=== PATIENT | male | born 1985 | race African-American/Black ===

== ENCOUNTER 2016-06-04 08:16 | Emergency (ER) | payer SELFPAY ==
[~2016-06-04] VITALS: Ht 188 cm; Wt 80.0 kg
[~2016-06-04 08:16] MED LIST: ABIL5TAB6 PO
[2016-06-04 08:18] VITALS: BP 135/86; PULSE 88; RESP 15; TEMP 97.9; O2SAT 98
--- NOTE | 2016-06-04 08:36 | PD ---
HPI Chief Complaint: Injury Time Seen by Provider: 08:36 Travel History International Travel<30 days: No Contact w/Intl Traveler<30days: No Traveled to known affect area: No History of Present Illness HPI 31-year-old male presents to the emergency department for evaluation of right hand injury that occurred 1 week ago. He states that he fell down 3 steps one week ago and then again yesterday. He states he has a right hand pain because he caught his fall with his hand. He denies any head injury or LOC. No neck pain or back pain. No chest pain or abdominal pain. No nausea or vomiting. He also states he has mild right shoulder pain. Patient has been ambulatory since the fall. He denies any chronic medical problems or taking any medications. [facility] Past Medical History Diminished Hearing: No Psychiatric: Yes (HAS BEEN TREATED FOR MOOD AND PSYCHOSIS) Immunizations Current: Yes Past Surgical History Oral Surgery: Yes Social History Alcohol Use: Yes (SOCIALLY) Tobacco Use: Yes (a few cigs per day. ) Substance Use: Yes Allergies-Medications (Allergen,Severity, Reaction): Coded Allergies: No Known Allergies (Verified , 06/04/16) Reported Meds & Prescriptions Reported Meds & Active Scripts Active No Active Prescriptions or Reported Medications Review of Systems Except as stated in HPI: all other systems reviewed are Neg Physical Exam Narrative GENERAL: Well-developed well-nourished male patient, ambulatory with a steady gait. Afebrile. SKIN: Warm and dry. HEAD: Normocephalic. Atraumatic. EYES: No scleral icterus. No injection or drainage. NECK: Supple, trachea midline. No JVD or lymphadenopathy. CARDIOVASCULAR: Regular rate and rhythm without murmurs, gallops, or rubs. Right radial pulses 2+. RESPIRATORY: Breath sounds equal bilaterally. No accessory muscle use. Lungs sounds are clear to auscultation. GASTROINTESTINAL: Abdomen soft, non-tender, nondistended. MUSCULOSKELETAL: No cyanosis, or edema. Patient has tenderness over right posterior shoulder and right volar hand just proximal to the second third and fourth digits. Capillary refill less than 2 seconds to the digits of the right hand. No snuffbox tenderness. He has a normal grasp strength in the right hand. BACK: Nontender without obvious deformity. No CVA tenderness. No midline spinal tenderness. He has full range of motion of the cervical spine without pain or stiffness. Data Data Last Documented VS Vital Signs Date Time Temp Pulse Resp B/P Pulse Ox O2 Delivery O2 Flow Rate FiO2 06/04/16 08:18 97.9 88 15 135/86 98 Orders Shoulder, Complete (>2vws) (06/04/16 ) Hand, Complete ([id number]) (06/04/16 ) Splint Or Brace Apply/Monitor (06/04/16 09:39) Ibuprofen (Motrin) (06/04/16 10:00) MDM Medical Decision Making Medical Screen Exam Complete: Yes Emergency Medical Condition: Yes Medical Record Reviewed: Yes Differential Diagnosis Sprain versus contusion versus fracture Narrative Course 31-year-old male presents to the emergency department for evaluation of right hand and right shoulder injury after he fell one week ago and again yesterday. He denies any other injury. X-ray of the right hand and right shoulder are ordered and pending. X-ray of the right hand shows a nondisplaced fracture of the carpal navicular. X-ray of the right shoulder is negative for fracture or dislocation. Patient will be placed in a thumb spica splint. He is instructed to follow-up with a hand surgeon. He states he has insurance to do so. Patient is return for any acute worsening of symptoms. He verbalizes agreement and understanding. Diagnosis Primary Impression: Fracture of navicular bone of right wrist Qualified Code: S62.001A - Closed nondisplaced fracture of scaphoid of right wrist, unspecified portion of scaphoid, initial encounter Referrals: Hand Surgeon call for appointment Patient Instructions: General Instructions, Wrist Fracture in Adults (ED) Additional Instructions: Wrist splint. Elevate. Take ibuprofen as instructed as needed with food for pain. Follow-up with hand surgeon or orthopedist. Return to the emergency department for any acute worsening of symptoms. Med/Other Pt SpecificInfo: Prescription(s) given Scripts Ibuprofen 800 Mg Wen409 Mg PO TID PRN (PAIN SCALE 1 TO 10) #21 TAB Ref 0 Prov:Anna Durbin 06/04/16 Disposition: 01 DISCHARGE HOME Condition: Stable Anna Durbin Jun 04, 2016 08:36
--- NOTE | 2016-06-04 09:32 | RADRPT ---
EXAM DATE/TIME: 06/04/2016 09:05 [facility] COMPARISON: No previous studies available for comparison. INDICATIONS : Right hand pain after falling last week and again yesterday. MEDICAL HISTORY : Smoker. SURGICAL HISTORY : None. ENCOUNTER: Initial ACUITY: 1 week PAIN SCORE: 10/10 LOCATION: Right entire hand. FINDINGS: Nondisplaced fracture of the carpal navicular. No other fractures are appreciated. CONCLUSION: Nondisplaced fracture carpal navicular. Herber Greene MD FACR on June 04, 2016 at 9:26 Board Certified Radiologist. This report was verified electronically.
--- NOTE | 2016-06-04 09:36 | RADRPT ---
EXAM DATE/TIME: 06/04/2016 09:10 [facility] COMPARISON: No previous studies available for comparison. INDICATIONS : Right shoulder pain after falling last week and again yesterday. MEDICAL HISTORY : Smoker. SURGICAL HISTORY : None. ENCOUNTER: Initial ACUITY: 1 week PAIN SCORE: 10/10 LOCATION: Right shoulder. FINDINGS: Multiple view examination of the right shoulder demonstrates no evidence of fracture or dislocation. The glenohumeral and acromioclavicular joints are maintained. There is normal range of motion betwe en internal and external rotation. Bony mineralization is normal. CONCLUSION: Negative for fracture or dislocation. Followup in 7-10 days is suggested if symptoms persist.. Herber Greene MD FACR on June 04, 2016 at 9:31 Board Certified Radiologist. This report was verified electronically.
[2016-06-04] MEDS ORDERED: IBUP800T23 PO (09:49)
[2016-06-04] MEDS ORDERED: IBUPROFEN 800 MG TAB PO ONE (10:00)
== END 2016-06-04 10:06 | disposition home or self-care (01) ==
LOC: NEPB 08:16
DX: S62.001A Unspecified fracture of navicular [scaphoid] bone of right wrist, initial encounter for closed fracture (principal); M25.511 Pain in right shoulder; F17.210 Nicotine dependence, cigarettes, uncomplicated; W10.9XXA Fall (on) (from) unspecified stairs and steps, initial encounter; Y99.8 Other external cause status
CPT/HCPCS: 73030; 73130; 99283; L3808

== ENCOUNTER 2016-06-09 20:42 | Emergency (ER) | payer SELFPAY ==
[~2016-06-09] VITALS: Ht 188 cm; Wt 82.0 kg
[~2016-06-09 20:42] MED LIST changes: -ABIL5TAB6 PO; +IBUP800T23 PO
[2016-06-09 20:46] VITALS: BP 136/70; PULSE 93; RESP 14; TEMP 98.3; O2SAT 97
--- NOTE | 2016-06-09 21:52 | PD ---
HPI Chief Complaint: Complaint Time Seen by Provider: 21:40 Travel History International Travel<30 days: No Contact w/Intl Traveler<30days: No Traveled to known affect area: No History of Present Illness HPI 31-year-old male presents for evaluation of a pruritic rash. Symptoms started 1 week ago. The rash is inferior to the scrotum. It itches. It is worse when he is sweating. He has tried washing the area but the rash has persisted which prompted evaluation. Denies any testicular or scrotal pain, urethral discharge. Incidentally per chart review the patient was diagnosed with a right navicular fracture on June 04. He was placed in a thumb spica splint which he is not wearing. He reports that he took it off because "it wasn't covering up the area that is broken." He seems to be under the impression that all of his fingers are broken although the x-ray only showed a nondisplaced navicular bone fracture on June 04. Per chart review appears that the patient was hospitalized last year with psychosis and questionable history of schizoaffective disorder. He has somewhat of an odd affect. No other complaints. PFSH Past Medical History Diminished Hearing: No Psychiatric: Yes (HAS BEEN TREATED FOR MOOD AND PSYCHOSIS) Immunizations Current: Yes Past Surgical History Oral Surgery: Yes Social History Alcohol Use: Yes (SOCIALLY) Tobacco Use: Yes (a few cigs per day. ) Substance Use: Yes Allergies-Medications (Allergen,Severity, Reaction): Coded Allergies: No Known Allergies (Verified , 06/09/16) Reported Meds & Prescriptions Reported Meds & Active Scripts Active Clotrimazole Anti-Fungal Topical (Clotrimazole) 1% Cream 1 Applic TOPICAL BID 28 Days Ibuprofen 800 Mg Tab 800 Mg PO TID PRN Review of Systems Except as stated in HPI: all other systems reviewed are Neg Physical Exam Narrative GENERAL: Well-developed well-nourished male in no acute distress SKIN: Warm and dry. Examination reveals some papular lesions noted inferior to the testicles consistent with folliculitis. No erythema, no drainage, no fluctuance. HEAD: Atraumatic. Normocephalic. EYES: Pupils equal and round. No scleral icterus. No injection or drainage. ENT: No nasal bleeding or discharge. Mucous membranes pink and moist. NECK: Trachea midline. No JVD. CARDIOVASCULAR: Regular rate and rhythm. No murmur appreciated. RESPIRATORY: No accessory muscle use. Clear to auscultation. Breath sounds equal bilaterally. MUSCULOSKELETAL: No obvious deformities. The patient is not wearing a splint on the right wrist. NEUROLOGICAL: Awake and alert. No obvious cranial nerve deficits. Motor grossly within normal limits. Normal speech. PSYCHIATRIC: The patient has a bizarre affect. Data Data Last Documented VS Vital Signs Date Time Temp Pulse Resp B/P Pulse Ox O2 Delivery O2 Flow Rate FiO2 06/09/16 21:58 14 06/09/16 20:46 98.3 93 136/70 97 Room Air Orders Wrist, Navicular Views (06/09/16 ) MDM Medical Decision Making Medical Screen Exam Complete: Yes Emergency Medical Condition: Yes Medical Record Reviewed: Yes Differential Diagnosis Folliculitis versus irritant contact dermatitis versus tinea cruris versus cellulitis Narrative Course Examination reveals folliculitis inferior to the scrotum likely secondary to sweat and mild excoriation. The patient be given an antifungal cream. Discussed proper hygiene including keeping the area as clean and dry as possible. In addition I discussed with the patient his recent injury to the right wrist. He apparently took off his thumb spica splint has been using his wrist normally. Therefore repeat navicular bone x-ray has been ordered. The patient apparently also was not under the impression that he was supposed to follow up with a hand surgeon. It was once again reiterated to the patient that he should follow up with a hand surgeon. He'll be given the name of a local hand surgeon that he can call to make an appointment with and he'll be discharged with an antifungal cream. The radiologist has read the navicular bone view of the x-ray today as negative for fracture. X-ray reading on June 04 revealed a nondisplaced navicular fracture. On examination he does have point tenderness to palpation to the right navicular bone and therefore this will be treated as likely a nondisplaced navicular fracture and he will be placed back in a thumb spica splint. Diagnosis Primary Impression: Fracture of navicular bone of right wrist Qualified Code: S62.001D - Closed nondisplaced fracture of scaphoid of right wrist with routine healing, unspecified portion of scaphoid, subsequent encounter Additional Impression: Folliculitis Referrals: Shade Smith MD Additional Instructions: Keep the area clean and dry as best as possible. Use the antifungal cream as prescribed. Do not remove the splint. Follow up with a hand surgeon such as Dr. Padilla in the next few days. Med/Other Pt SpecificInfo: Prescription(s) given, Orthopedic Instructions Scripts Clotrimazole Topical (Clotrimazole Anti-Fungal Topical)1% Cream1 Applic TOPICAL BID 28 Days Ref 0 Prov:Jose Rowley MD 06/09/16 Disposition: 01 DISCHARGE HOME Condition: Stable Frank Read Jun 09, 2016 21:52
[2016-06-09] MEDS ORDERED: CLOT1CRE6 TOPICAL (21:53)
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
[2016-06-09] MEDS ORDERED: IBUPROFEN 800 MG TAB PO ONE (23:00)
== END 2016-06-09 22:55 | disposition home or self-care (01) ==
LOC: NEPB 20:42
DX: S62.001D Unspecified fracture of navicular [scaphoid] bone of right wrist, subsequent encounter for fracture with routine healing (principal); L73.9 Follicular disorder, unspecified; F17.210 Nicotine dependence, cigarettes, uncomplicated; X58.XXXD Exposure to other specified factors, subsequent encounter
CPT/HCPCS: 73100; 99283; L3808

== ENCOUNTER 2016-06-12 14:19 | Emergency (ER) | payer OTHER ==
[~2016-06-12] VITALS: Ht 188 cm; Wt 85.0 kg
[~2016-06-12 14:19] MED LIST changes: +CLOT1CRE6 TOPICAL
--- NOTE | 2016-06-12 14:29 | PD ---
HPI Chief Complaint: EXPARTE Time Seen by Provider: 14:29 Travel History International Travel<30 days: No Contact w/Intl Traveler<30days: No Traveled to known affect area: No History of Present Illness HPI 31-year-old male with history of schizoaffective disorder, presents to the emergency department under and exparte for psychiatric evaluation. Report, patient has been more aggressive and argumentative. He has not been taking his antipsychotic medication. Patient states this is not true. He states that his neighbors aggravate him. He denies suicidal or homicidal ideations. States that he does not need to take medicine because he does not have anything wrong with him. He has no medical complaints this time. Does state that the [place] is watching his house. PFSH Past Medical History Medical History: Denies Significant Hx Diminished Hearing: No Psychiatric: Yes (HAS BEEN TREATED FOR MOOD AND PSYCHOSIS) Immunizations Current: Yes Schizophrenia: Yes Past Surgical History Oral Surgery: Yes Social History Alcohol Use: Yes (SOCIALLY) Tobacco Use: Yes (a few cigs per day. ) Substance Use: Yes (WEED) Allergies-Medications (Allergen,Severity, Reaction): Coded Allergies: No Known Allergies (Verified , 06/09/16) Reported Meds & Prescriptions Reported Meds & Active Scripts Active No Active Prescriptions or Reported Medications Review of Systems Except as stated in HPI: all other systems reviewed are Neg Physical Exam Narrative GENERAL: Well-nourished male patient, ambulatory and in no acute distress SKIN: Warm and dry. Abrasion over the dorsal aspect of the proximal right hand. It appears to be healing. Without any significant erythema or edema. No drainage. HEAD: Atraumatic. Normocephalic. EYES: Pupils equal and round. No scleral icterus. No injection or drainage. ENT: No nasal bleeding or discharge. Mucous membranes pink and moist. NECK: Trachea midline. No JVD. CARDIOVASCULAR: Regular rate and rhythm. No murmur appreciated. RESPIRATORY: No accessory muscle use. Clear to auscultation. Breath sounds equal bilaterally. GASTROINTESTINAL: Abdomen soft, non-tender, nondistended. Hepatic and splenic margins not palpable. MUSCULOSKELETAL: No obvious deformities. No clubbing. No cyanosis. No edema. NEUROLOGICAL: Awake and alert. No obvious cranial nerve deficits. Motor grossly within normal limits. Normal speech. Data Data Last Documented VS Vital Signs Date Time Temp Pulse Resp B/P Pulse Ox O2 Delivery O2 Flow Rate FiO2 06/12/16 18:00 98.8 63 18 133/70 99 Room Air Orders Complete Blood Count With Diff (06/12/16 14:39) Basic Metabolic Panel (Bmp) (06/12/16 14:39) Drug Screen, Random Urine (06/12/16 14:39) Alcohol (Ethanol) (06/12/16 14:39) Psych Screen (06/12/16 14:39) Diet Regular Basic (06/12/16 Dinner) Labs Laboratory Tests Test 06/12/16 14:45 White Blood Count 6.0 TH/MM3 Red Blood Count 4.83 MIL/MM3 Hemoglobin 13.4 GM/DL Hematocrit 40.2 % Mean Corpuscular Volume 83.2 FL Mean Corpuscular Hemoglobin 27.8 PG Mean Corpuscular Hemoglobin 33.4 % Concent Red Cell Distribution Width 13.5 % Platelet Count 410 TH/MM3 Mean Platelet Volume 7.6 FL Neutrophils (%) (Auto) 62.1 % Lymphocytes (%) (Auto) 28.8 % Monocytes (%) (Auto) 5.4 % Eosinophils (%) (Auto) 2.3 % Basophils (%) (Auto) 1.4 % Neutrophils # (Auto) 3.7 TH/MM3 Lymphocytes # (Auto) 1.7 TH/MM3 Monocytes # (Auto) 0.3 TH/MM3 Eosinophils # (Auto) 0.1 TH/MM3 Basophils # (Auto) 0.1 TH/MM3 CBC Comment DIFF FINAL Differential Comment Sodium Level 139 MEQ/L Potassium Level 3.3 MEQ/L Chloride Level 104 MEQ/L Carbon Dioxide Level 27.0 MEQ/L Anion Gap 8 MEQ/L Blood Urea Nitrogen 8 MG/DL Creatinine 1.06 MG/DL Estimat Glomerular Filtration 99 ML/MIN Rate Random Glucose 102 MG/DL Calcium Level 8.8 MG/DL Urine Opiates Screen NEG Urine Barbiturates Screen NEG Urine Amphetamines Screen NEG Urine Benzodiazepines Screen NEG Urine Cocaine Screen NEG Urine Cannabinoids Screen POS Ethyl Alcohol Level LESS THAN 3 MG/DL MDM Medical Decision Making Medical Screen Exam Complete: Yes Emergency Medical Condition: Yes Medical Record Reviewed: Yes Differential Diagnosis Mood disorder versus personality disorder versus acute psychosis versus adjustment reaction disorder versus substance abuse Narrative Course 31-year-old male presents to the emergency department for psychiatric evaluation. Patient appears without distress. His lab work is without acute concern. Patient is medically cleared to undergo psychiatric screening for further evaluation and disposition. Mental health screening discussed with the patient. Psychiatric screen ordered. Diagnosis Primary Impression: Schizoaffective disorder Qualified Code: F25.9 - Schizoaffective disorder, unspecified type Scripts No Active Prescriptions or Reported Meds Condition: Munira Tse Jun 12, 2016 14:29
[2016-06-12 14:34] VITALS: BP 141/83; PULSE 78; RESP 19; TEMP 98.4; O2SAT 98
[2016-06-12 15:26] LABS: AUTOMATED NEUTROPHIL # 3.7 TH/MM3 (1.8-7.7); BASOPHIL # 0.1 TH/MM3 (0-0.2); BASOPHIL % 1.4 % (0.0-2.0); EOSINOPHIL # 0.1 TH/MM3 (0-0.4); EOSINOPHIL % 2.3 % (0.0-4.0); HEMATOCRIT 40.2 % (39.0-51.0); HEMO FLAGS DIFF FINAL; LYMPH % 28.8 % (9.0-44.0); LYMPHOCYTE # 1.7 TH/MM3 (1.0-4.8); MEAN CELL VOLUME 83.2 FL (80.0-100.0); MEAN CORPUSCULAR HEMOGLOBIN 27.8 PG (27.0-34.0); MEAN CORPUSCULAR HGB CONC 33.4 % (32.0-36.0); MONO % 5.4 % (0.0-8.0); NEUT % 62.1 % (16.0-70.0); PLATELET COUNT 410 TH/MM3 (150-450); RED BLOOD COUNT 4.83 MIL/MM3 (4.50-5.90); RED CELL DISTRIBUTION WIDTH 13.5 % (11.6-17.2)
[2016-06-12 15:44] LABS: ANION GAP 8 MEQ/L (5-15); BLOOD UREA NITROGEN 8 MG/DL (7-18); CHLORIDE 104 MEQ/L (98-107); GLOMERULAR FILTRATION RATE 99 ML/MIN (>89); POTASSIUM 3.3 MEQ/L (3.5-5.1); SODIUM (NA) 139 MEQ/L (136-145)
[2016-06-12 15:50] LABS: AMPHETAMINE, URINE NEG (NEG); BARBITURATES, URINE NEG (NEG); COCAINE, URINE NEG (NEG)
[2016-06-12 18:00] VITALS: BP 133/70; PULSE 63; RESP 18; TEMP 98.8; O2SAT 99
== END 2016-06-12 21:28 ==
LOC: NEPA 14:19 → NEPJ 21:28
DX: F25.9 Schizoaffective disorder, unspecified (principal)
CPT/HCPCS: 80048; 80307; 80320; 85025; 99284

== ENCOUNTER 2016-07-14 17:29 | Emergency (ER) | payer SELFPAY ==
[2016-07-14 18:15] VITALS: BP 117/73; PULSE 59; RESP 17; TEMP 99.1; O2SAT 98
[2016-07-14 20:07] VITALS: BP 132/71; PULSE 60; RESP 18; O2SAT 96
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
[2016-07-14 21:20] LABS: AMPHETAMINE, URINE NEG (NEG); BARBITURATES, URINE NEG (NEG); COCAINE, URINE NEG (NEG)
[2016-07-14 22:18] VITALS: BP 115/72; PULSE 61; RESP 17; O2SAT 100
== END 2016-07-15 03:31 ==
LOC: NEPB 17:29 → NEPJ 07-15 03:31
DX: R68.89 Other general symptoms and signs (principal); Z03.89 Encounter for observation for other suspected diseases and conditions ruled out; F12.10 Cannabis abuse, uncomplicated
CPT/HCPCS: 80307; 99285

== ENCOUNTER 2016-08-09 14:36 | Emergency (ER) | payer SELFPAY ==
[2016-08-09 14:46] VITALS: BP 130/68; PULSE 84; RESP 15; TEMP 98.2; O2SAT 98
== END 2016-08-09 15:39 | disposition left against medical advice (07) ==
LOC: NED 14:36
DX: R23.8 Other skin changes (principal); Z53.21 Procedure and treatment not carried out due to patient leaving prior to being seen by health care provider
CPT/HCPCS: 99281

== ENCOUNTER 2016-08-09 17:58 | Emergency (ER) | payer SELFPAY ==
[~2016-08-09] VITALS: Ht 185.4 cm; Wt 82.0 kg
[2016-08-09 18:00] VITALS: BP 131/70; PULSE 75; RESP 15; TEMP 98.2; O2SAT 97
== END 2016-08-09 20:09 | disposition left against medical advice (07) ==
LOC: NED 17:58
DX: R21 Rash and other nonspecific skin eruption (principal); Z53.21 Procedure and treatment not carried out due to patient leaving prior to being seen by health care provider
CPT/HCPCS: 99281

== ENCOUNTER 2016-08-10 03:06 | Emergency (ER) | payer SELFPAY ==
[~2016-08-10] VITALS: Ht 185.4 cm; Wt 82.0 kg
[2016-08-10 03:10] VITALS: BP 116/88; PULSE 78; RESP 16; TEMP 97.4; O2SAT 98
== END 2016-08-10 03:11 | disposition left against medical advice (07) ==
LOC: NED 03:06
DX: T78.40XA Allergy, unspecified, initial encounter (principal)
CPT/HCPCS: 99281

== ENCOUNTER 2016-08-10 21:25 | Emergency (ER) | payer SELFPAY | END 2016-08-10 22:41 | disposition left against medical advice (07) | LOC: PHED 21:25 | DX: R21 Rash and other nonspecific skin eruption (principal) | CPT/HCPCS: 99281 ==

== ENCOUNTER 2016-08-10 23:31 | Emergency (ER) | payer SELFPAY ==
[~2016-08-10] VITALS: Ht 185.4 cm; Wt 81.0 kg
[2016-08-10 23:36] VITALS: BP 117/83; PULSE 76; RESP 18; TEMP 98.7; O2SAT 98
--- NOTE | 2016-08-11 02:15 | PD ---
HPI Chief Complaint: Skin Problem Time Seen by Provider: 01:57 Travel History International Travel<30 days: No Contact w/Intl Traveler<30days: No Traveled to known affect area: No History of Present Illness HPI The patient is a 31-year-old male bipolar schizophrenic who has had a rash on his testicles since before May of this year. He states the clotrimazole cream was getting better but now he has "an infection" and needs an antibiotic. He denies any fever. Despite the fact he went to the emergency department in May and got the prescription he did not fill the prescription until 2 weeks ago because of personal problems at home. He used it for 2 weeks and it got better the first week and he thinks she is allergic to clotrimazole now because it is getting worse. PFSH Past Medical History Diminished Hearing: No Psychiatric: Yes (HAS BEEN TREATED FOR MOOD AND PSYCHOSIS) Immunizations Current: Yes Schizophrenia: Yes Tetanus Vaccination: < 5 Years Influenza Vaccination: No Past Surgical History Oral Surgery: Yes Social History Alcohol Use: Yes (SOCIALLY) Tobacco Use: Yes (a few cigs per day, and sometimes marijuana ) Substance Use: Yes Allergies-Medications (Allergen,Severity, Reaction): Coded Allergies: Clotrimazole (Verified Allergy, Severe, RASH, 08/11/16) Reported Meds & Prescriptions Reported Meds & Active Scripts Active Active Prescriptions or Reported Medications Unobtainable Review of Systems Except as stated in HPI: all other systems reviewed are Neg Physical Exam Narrative GENERAL: Well-nourished, well-developed patient in slight apparent distress with his scrotal pain. His vital signs are normal. SKIN: Focused skin assessment warm/dry. The intertriginous area shows what appears to be a fungal rash. The patient states this is getting better with clotrimazole. There is a wet rash on the scrotum that may be bacterial. The patient appears to have poor hygiene. HEAD: Normocephalic. EYES: No scleral icterus. No injection or drainage. NECK: Supple, trachea midline. No JVD or lymphadenopathy. CARDIOVASCULAR: Regular rate and rhythm without murmurs, gallops, or rubs. RESPIRATORY: Breath sounds equal bilaterally. No accessory muscle use. GASTROINTESTINAL: Abdomen soft, non-tender, nondistended. MUSCULOSKELETAL: No cyanosis, or edema. BACK: Nontender without obvious deformity. No CVA tenderness. Data Data Last Documented VS Vital Signs Date Time Temp Pulse Resp B/P Pulse Ox O2 Delivery O2 Flow Rate FiO2 08/10/16 23:36 98.7 76 18 117/83 98 MDM Medical Decision Making Medical Screen Exam Complete: Yes Emergency Medical Condition: Yes Medical Record Reviewed: Yes Differential Diagnosis Fungal rash, bacterial rash, intertriginous rash Narrative Course The patient has poor hygiene in the area and needs to clean the area well and dry the scrotum thoroughly. He needs to dry the area out by turning a fan on the scrotum and penis so that it dries out. He will be given Bactrim DS for the bacterial infection. He needs to follow-up with a associate civil engineer. He will be given a prescription for Procedures Procedure Narrative The patient left without getting any prescriptions. He states he knows he has an STDtrichomonas. Additional Instructions: The patient has an intertriginous rash and he needs to dried out. He would have been prescribed nystatin powder and an oral antibiotic for the secondary infection but he walked out. Apparently, he walked out, left without being seen twice today. Scripts Unable to Obtain Active Prescriptions or Reported Meds Disposition: 07 AGAINST MEDICAL ADVICE Condition: Stable Teddy Livingston MD Aug 11, 2016 02:15
== END 2016-08-11 04:15 | disposition left against medical advice (07) ==
LOC: PHED 23:31
DX: R21 Rash and other nonspecific skin eruption (principal); Z53.9 Procedure and treatment not carried out, unspecified reason
CPT/HCPCS: 99282

== ENCOUNTER 2017-01-05 17:10 | Inpatient (IN) | payer OTHER ==
[~2017-01-05] VITALS: Ht 188 cm; Wt 84.1 kg
[2017-01-05 17:31] VITALS: BP 143/89; PULSE 107; RESP 20; TEMP 98.5; O2SAT 99
[2017-01-05] MEDS ORDERED: ZIPRASIDONE MESYLATE 20 MG VIAL IM ONE ×2 (17:45→18:45)
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
[2017-01-05 20:45] LABS: AUTOMATED NEUTROPHIL # 6.1 TH/MM3 (1.8-7.7); BASOPHIL # 0.1 TH/MM3 (0-0.2); EOSINOPHIL % 0.5 % (0.0-4.0); HEMO FLAGS DIFF FINAL; LYMPH % 22.4 % (9.0-44.0); LYMPHOCYTE # 2.1 TH/MM3 (1.0-4.8); MEAN CORPUSCULAR HEMOGLOBIN 27.8 PG (27.0-34.0); MONO % 10.7 % (0.0-8.0); NEUT % 65.4 % (16.0-70.0); PLATELET COUNT 408 TH/MM3 (150-450); RED BLOOD COUNT 5.17 MIL/MM3 (4.50-5.90); RED CELL DISTRIBUTION WIDTH 14.2 % (11.6-17.2); WHITE BLOOD COUNT 9.3 TH/MM3 (4.0-11.0)
[2017-01-05 20:51] VITALS: BP 135/78; PULSE 98; RESP 16; TEMP 98.4; O2SAT 99
[2017-01-05 21:23] LABS: ANION GAP 5 MEQ/L (5-15); AST (GOT) 15 U/L (15-37); BICARBONATE 27.8 MEQ/L (21.0-32.0); BLOOD UREA NITROGEN 15 MG/DL (7-18); CHLORIDE 105 MEQ/L (98-107); GLOMERULAR FILTRATION RATE 92 ML/MIN (>89); POTASSIUM 3.6 MEQ/L (3.5-5.1); SODIUM (NA) 138 MEQ/L (136-145)
[2017-01-05 21:24] LABS: ALCOHOL 4 MG/DL (0-5); ALT (GPT) 27 U/L (12-78)
[2017-01-05 21:26] LABS: ALKALINE PHOSPHATASE 70 U/L (45-117); TOTAL BILIRUBIN ADULT 0.6 MG/DL (0.2-1.0)
[2017-01-06 02:10] VITALS: BP 128/74; PULSE 87; RESP 16; O2SAT 97
[2017-01-06 05:49] VITALS: BP 106/59; PULSE 88; RESP 18; TEMP 98.2; O2SAT 99
--- NOTE | 2017-01-06 08:39 | PD ---
History of Present Illness Chief Complaint: Psychiatric Symptoms Time Seen by Provider: 08:25 Travel History International Travel<30 Days: No Contact w/Intl Traveler<30days: No Known affected area: No Legal Status Legal Status: Duran Reye Darrell Act Signed By: JUDGE Reagan Ramírez Act Comment: [address] [address] [employer] [address] FOR - 01/05/17@ 1550 History of Present Illness: History of Present Illness HPI 31-year-old male with history of schizoaffective disorder who presents to the emergency Department under ex parte order for psychiatric evaluation. The order was petitioned by his mother and it alleges that he believes his mother is trying to keep his 100 million inheritance , he has been verbally aggressive, threatening to kill everybody and not being afraid to as well as being non compliant with treatment and refusing to seek psychiatric care. Upon arrival to the Ed he was reported as being " hostile", required to be placed in restraints due to his aggressive behavior, became hostile and was screaming " fuck you" to ed provider.While in Ed he was medicated with Geodon. Patient seen. EMR is reviewed. He was last evaluated by psychiatry in July 2016 under an exparte and sent to [facility]. He was admitted to [facility] on Feb 2016 under the care of Dr. Galvez for similar circumstances. The patient is seen in main ed. he is dressed in basketball shorts and a t shirt. Appropriate hygiene and grooming. He is initially calm but quickly escalates and becomes hostile. He is not threatening towards this ghost writer but is hostile. He then goes on to sate that his mother wants him to be in the hospital so that he can be declared incompetent and " she can keep my 100 million dollars" . He appears to be paranoid. Denies that he has a mental illness and that he does not need medication. He does not answer any further questions at this point. Telephone call to his mother Ms. Adelaide Leger at [phone]. She reports that he was arrested for assault and was in residential until December. She reports that he was evaluated while in residential and was placed on medication. Since he was released from residential he has been verbally threatening to" kill everybody because his life was not worth anything". Also stated that " if I don't get my 100 million dollars from an inheritance I will kill everyone". She is concerned for his safety as well as her safety. PFSH Past Medical History Bipolar Disorder: Yes Diminished Hearing: No Psychiatric: Yes (HAS BEEN TREATED FOR MOOD AND PSYCHOSIS) Immunizations Current: Yes Schizophrenia: Yes Tetanus Vaccination: Unknown Influenza Vaccination: No Past Surgical History Surgical History: No Previous Surgery Oral Surgery: Yes Psychiatric History Psychiatric History Hx Psychiatric Treatment: PATIENT HAS BEEN ADMITTED TO [facility] as well as [facility] Currently not in tx History of Inpatient Treatment: Yes Guns or firearms in home: No Social History As per record.. Single male.has a bachelors degree in communication. Unemployed. Released from residential in 2016 for charges of assault and resisting arrest. Hx Alcohol Use: Yes (SOCIALLY) Hx Tobacco Use: Yes (a few cigs per day) Hx Substance Use: Yes (marijuana) Substance Use Type: Marijuana (Positive for cannabinoids) Hx of Substance Use Treatment: No Family Psychiatric History Unknown Allergies-Medications (Allergen,Severity, Reaction): Coded Allergies: clotrimazole (Unverified Allergy, Severe, RASH, 01/05/17) Reported Meds & Prescriptions Reported Meds & Active Scripts Active Active Prescriptions or Reported Medications Unobtainable Review of Systems ROS Limitations: Uncooperative, Refused Exam Alert: Yes [place]: Person (ox4) Mood: Agitated, Angry Affect: Appropriate Speech: Clear Eye Contact: Normal Memory Intact: Comment (Not impaired) Delusions: Yes Delusion Type: Paranoid Suicidal: Ideation (deneis) Homicidal: Ideation (deneis) Insight/Judgement Poor. Poor MDM Medical Decision Making Medical Record Reviewed: Yes Assessment/Plan 31-year-old male with history of schizoaffective disorder who presents to the emergency Department under ex parte order for psychiatric evaluation. The order was petitioned by his mother and it alleges that he believes his mother is trying to keep his 100 million inheritance , he has been verbally aggressive, threatening to kill everybody and not being afraid to as well as being non compliant with treatment and refusing to seek psychiatric care. The patient in ED has been agitated and hostile, has required restrains as well as ETO for agitated and threatening behavior. Admit to Inpatient psychiatry for further evaluation, stabilization and to maintain safety. Orders Orders Ziprasidone Inj (Geodon Inj) (01/05/17 17:45) Restraints Violent (01/05/17 17:51) Complete Blood Count With Diff (01/05/17 18:06) Comprehensive Metabolic Panel (01/05/17 18:06) Psych Screen (01/05/17 18:06) Drug Screen, Random Urine (01/05/17 18:06) Alcohol (Ethanol) (01/05/17 18:06) Ziprasidone Inj (Geodon Inj) (01/05/17 18:45) Diet Regular Basic (01/06/17 Breakfast) Results Vital Signs Date Time Temp Pulse Resp B/P (MAP) Pulse Ox O2 Delivery O2 Flow Rate FiO2 01/06/17 05:49 98.2 88 18 106/59 (75) 99 01/06/17 02:10 87 16 128/74 (92) 97 Room Air 01/05/17 20:51 98.4 98 16 135/78 (97) 99 Room Air 01/05/17 17:31 98.5 107 20 143/89 (107) 99 Laboratory Tests Test 01/05/17 20:00 01/06/17 05:56 White Blood Count 9.3 Red Blood Count 5.17 Hemoglobin 14.4 Hematocrit 45.0 Mean Corpuscular Volume 87.0 Mean Corpuscular Hemoglobin 27.8 Mean Corpuscular Hemoglobin Concent 32.0 Red Cell Distribution Width 14.2 Platelet Count 408 Mean Platelet Volume 6.9 Neutrophils (%) (Auto) 65.4 Lymphocytes (%) (Auto) 22.4 Monocytes (%) (Auto) 10.7 Eosinophils (%) (Auto) 0.5 Basophils (%) (Auto) 1.0 Neutrophils # (Auto) 6.1 Lymphocytes # (Auto) 2.1 Monocytes # (Auto) 1.0 Eosinophils # (Auto) 0.0 Basophils # (Auto) 0.1 CBC Comment DIFF FINAL Differential Comment Blood Urea Nitrogen 15 Creatinine 1.13 Random Glucose 91 Total Protein 8.2 Albumin 4.6 Calcium Level 9.6 Alkaline Phosphatase 70 Aspartate Amino Transf (AST/SGOT) 15 Alanine Aminotransferase (ALT/SGPT) 27 Total Bilirubin 0.6 Sodium Level 138 Potassium Level 3.6 Chloride Level 105 Carbon Dioxide Level 27.8 Anion Gap 5 Estimat Glomerular Filtration Rate 92 Ethyl Alcohol Level 4 Urine Opiates Screen NEG Urine Barbiturates Screen NEG Urine Amphetamines Screen NEG Urine Benzodiazepines Screen NEG Urine Cocaine Screen NEG Urine Cannabinoids Screen POS Diagnosis Primary Impression: Schizoaffective disorder Admitting Information Admitting Physician Requests: Admit Additional Instructions: Patient is medically cleared for psychiatric screening and disposition. Prescriptions Unable to Obtain Active Prescriptions or Reported Meds Condition: Stable Problem Qualifiers Primary Impression: Schizoaffective disorder Qualified Codes: F25.0 - Schizoaffective disorder, bipolar type Jenifer Carbajal Jan 06, 2017 08:39
[2017-01-06] MEDS ORDERED: MAGNESIUM HYDROXIDE SUSP 30 ML CUP PO PRN (09:15)
[2017-01-06 10:55] VITALS: BP 118/61; PULSE 62; TEMP 98.5; O2SAT 97
[2017-01-06] MEDS ORDERED: LORazepam 2 MG/ML VIAL IM ONE (12:15)
[2017-01-06] MEDS ORDERED: HALOPERIDOL LACTATE 5 MG/ML AMP IM ONE (12:15)
[2017-01-06] MEDS ORDERED: diphenhydrAMINE HCL 50 MG/ML VIAL IM ONE (12:15)
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
[2017-01-06] MEDS ORDERED: LORazepam 1 MG TAB PO PRN (17:00)
[2017-01-06] MEDS ORDERED: LORazepam 2 MG/ML VIAL IM PRN (17:00)
[2017-01-06] MEDS ORDERED: HALOPERIDOL LACTATE 5 MG/ML AMP IM PRN (17:00)
[2017-01-06] MEDS: HALOPERIDOL 5 MG TAB PO SCH (20:51)
[2017-01-07 05:56] VITALS: BP 117/69; PULSE 81; RESP 16; TEMP 98.1
[2017-01-07] MEDS: HALOPERIDOL 5 MG TAB PO SCH ×3 (08:05→20:59)
[2017-01-07 11:09] LABS: HDL CHOLESTEROL 47.1 MG/DL (40.0-60.0); LDL CHOLESTEROL 133 MG/DL (0-99)
[2017-01-07] MEDS: diphenhydrAMINE HCL 50 MG/ML VIAL IM PRN (11:55)
--- NOTE | 2017-01-07 12:43 | PD.PSY.CON ---
Provisional Diagnosis Admission Date Jan 06, 2017 at 09:06 [place]. 1. Schizophrenia, paranoid type, acute exacerbation, 2. Cannabis abuse [place] II. Deferred [place]. GAF is 20 presently History of Present Illness Service Psychiatry Consult Requested By Attending physician Reason for Consult Second opinion Primary Care Physician No Primary Care Physician HPI Mr. Sainz is a 31-year-old male with a history of psychotic disorder who presents under an ex parte order initiated by his mother. I have reviewed disorder in detail, and patient's mother alleges that the patient has been angry and aggressive and has made threats to kill everybody. Ex parte indicates that the patient stated that he would kill everybody if he didn't get his $100 million. Patient was agitated in the ED and required medication with Geodon. Reviewing the electronic medical record, I note that the patient has been brought in previously under ex parte orders, and he was admitted briefly under my care in February of last year, although at that time it was less clear that he was experiencing active psychotic illness. Patient seen and examined with nurse. Chart reviewed. Case discussed with nursing staff. Earlier in the day, the patient was growing quite agitated and threatening. I ordered the patient medicated with Haldol, Ativan and Benadryl ETO. At the time of my evaluation this afternoon, the patient is considerably calmer and more cooperative. Eye contact is poor. He denies issuing threats as alleged in the ex parte order but does firmly believe that his family has taken away his $100 million inheritance. He says that he received this inheritance from "the great man of God." He also articulates a belief that his mother might not really be a family member. Some more generalized paranoia present. He denies audiovisual hallucinations but appears internally preoccupied. No depressive or hypomanic/manic symptoms elicited. He denies suicidal or homicidal ideation but seems unreliable to contract for safety. Sleep is reportedly poor. The remainder of the psychiatric ROS is negative. 01/07/2017. Patient seen by this physician and found to be agitated, paranoid and threatening staff. This physician agrees with the civil commitment. Review of Systems Except as stated in HPI: all other systems reviewed are Neg Past Family Social History Coded Allergies: clotrimazole (Unverified Allergy, Severe, RASH, 01/05/17) Unable to Obtain Active Prescriptions or Reported Meds Current Medications Medications (Trade) Dose Ordered Sig/Kaushik Route Start Time Stop Time Status Last Admin (Tylenol) 650 mg Q4H PRN PO 01/06/17 09:15 (Milk Of Magnesia Liq) 30 ml DAILY PRN PO 01/06/17 09:15 (Mag-Al Plus Susp Liq) 30 ml Q6H PRN PO 01/06/17 09:15 (Haldol) 5 mg BID PO 01/06/17 21:00 01/06/17 20:51 (Haldol Inj) 5 mg BID PRN IM 01/06/17 17:00 01/07/17 11:55 (Haldol Inj) 5 mg Q6HR PRN IM 01/06/17 17:00 (Ativan) 1 mg Q6H PRN PO 01/06/17 17:00 01/07/17 11:20 (Ativan Inj) 1 mg Q6H PRN IM 01/06/17 17:00 01/07/17 11:55 (Benadryl) 50 mg Q6H PRN PO 01/06/17 17:00 (Benadryl Inj) 50 mg Q6H PRN IM 01/06/17 17:00 01/07/17 11:55 Patient's Strengths (min. 2) In a monitored setting. Verbally fluent. Physical Exam Vital Signs Vital Signs Date Time Temp Pulse Resp B/P (MAP) Pulse Ox O2 Delivery O2 Flow Rate FiO2 01/07/17 05:56 98.1 81 16 117/69 (85) 01/06/17 10:55 97 01/06/17 02:10 Room Air Lab Results Test 01/07/17 09:25 Triglycerides Level 126 MG/DL Cholesterol Level 205 MG/DL LDL Cholesterol 133 MG/DL HDL Cholesterol 47.1 MG/DL Cholesterol/HDL Ratio 4.35 RATIO Mental Status Examination Speech: Unremarkable Orientation: x3 Memory: Unremarkable Thought Process: Organized, Goal Directed Thought Content: Paranoid Hallucination Type: None Attention and Concentration: Good Suicidal Ideation: No Previous Suicide Attempts: No Homicidal Ideation: No Previous Homicide Attempts: No Insight: Fair Judgment: Impulsive Affect: Irritable Affect if Inappropriate: Labile Mood: Angry Motor Activity: Normal gait Assessment & Plan Problem List: (1) Schizophrenia ICD Codes: F20.9 - Schizophrenia, unspecified Status: Acute (2) Cannabis abuse ICD Codes: F12.10 - Cannabis abuse, uncomplicated Status: Chronic Assessment & Plan Estimated LOS: days recommend continued civil commitment. Request HC Surrog/Guard Advoc?: Yes Problem Qualifiers (1) Schizophrenia: Qualified Codes: F20.0 - Paranoid schizophrenia Camilo Lisa MD Jan 07, 2017 12:43
--- NOTE | 2017-01-07 12:49 | HHI.PYPN ---
Subjective Remarks Patient seen and examined with nurse. Chart reviewed. Case discussed with nursing staff. Received a call from the nurse that patient was threatening to fight his way out of the unit, killing people if necessary, if he was not discharged by noon. I evaluate the patient a short time later and find him angry, agitated and psychotic. Paranoia more prominent today; patient has not received scheduled antipsychotic for lack of consent. He continues to threaten violence. When I suggest we speak in the privacy of his room, not in the hallway of the unit, he says we should speak in front of the TV because it is a "live wire" and expounds some sort of delusion or reference or possibly of being monitored. He makes some sort of allusion to a [facility] being a part of psychology. He says we are only trying to medicate him for the money. We cannot verbally de-escalate him, and I order him medicated with Haldol, Ativan and Benadryl PRN, having myself obtained consent from patient's mother over the phone prior to their administration. Mother notes that patient needs to be on a long-acting injectable because he will not take medications by mouth reliably. She is in fear of him and was thinking about leaving the state if his psychiatric symptoms cannot be brought under control. Review of Systems ROS Limitations: Uncooperative, Psychotic, Poor Historian Other Limited ROS because of above. Objective Alert: Yes [place]: Person, Place Mood: Agitated (Prominent), Angry Affect: Restricted Memory Intact: Comment (Not formally assessed) Hallucinations: Auditory (Appears int stim) Delusions: Yes Delusion Type: Paranoid Suicidal: Ideation (No SI) Homicidal: Ideation (Threatening violence if not discharged.) Insight/Judgment Very poor Remarks No motor abnormalities noted. Thought process perseverative on delusional themes. Speech loud and angry. Grooming and hygiene fair. Stay gait and station. Labs Test 01/07/17 09:25 Triglycerides Level 126 MG/DL Cholesterol Level 205 MG/DL LDL Cholesterol 133 MG/DL HDL Cholesterol 47.1 MG/DL Cholesterol/HDL Ratio 4.35 RATIO Labs reviewed. Patient too agitated for EKG. Vitals/IOs Vital Signs Date Time Temp Pulse Resp B/P (MAP) Pulse Ox O2 Delivery O2 Flow Rate FiO2 01/07/17 05:56 98.1 81 16 117/69 (85) 01/06/17 10:55 97 01/06/17 02:10 Room Air Assessment & Plan Problem List: (1) Schizophrenia ICD Codes: F20.9 - Schizophrenia, unspecified Status: Acute (2) Cannabis abuse ICD Codes: F12.10 - Cannabis abuse, uncomplicated Status: Chronic Assessment & Plan Consents having been obtained, start scheduled antipsychotic therapy to target psychosis. Titrate Haldol over the weekend to target dose of 10mg BID. To consider Haldol Dec. Increase Ativan PRN to 2mg per dose. Try to check EKG once calm. Continue to monitor on high-acuity unit. Upgrade to close obs. Violent/assaultive prec remain in place. Continue other medications and care as ordered. Justification for Cont. Inpt. Impairment in safety. Impairment in reality construction. Impairment in social function. Medication changes in process. Very high risk for decompensation in less restrictive environment. Discharge Planning Pending psychiatric stabilization. Request HC Surrog/Guard Advoc?: Yes Problem Qualifiers (1) Schizophrenia: Qualified Codes: F20.0 - Paranoid schizophrenia Olayinka Galvez MD Jan 07, 2017 12:48
[2017-01-07] MEDS ORDERED: HALOPERIDOL LACTATE 5 MG/ML AMP IM PRN (16:15)
[2017-01-07 16:36] LABS: HEMOGLOBIN A1a 0.8 %; HEMOGLOBIN A1b 0.8 %; HEMOGLOBIN Ao 87.1 %; HEMOGLOBIN F 1.1 %; HEMOGLOBIN LA1C 1.7 %; HEMOGLOBIN P3 3.1 %
[2017-01-07 17:53] VITALS: BP 95/64; PULSE 79; RESP 18; TEMP 98.6; O2SAT 98
[2017-01-08 06:02] VITALS: BP 103/55; PULSE 68; RESP 18; TEMP 98.4; O2SAT 99
[2017-01-08] MEDS: HALOPERIDOL 5 MG TAB PO SCH ×2 (09:00→21:00)
--- NOTE | 2017-01-08 12:53 | HHI.PYPN ---
Subjective Remarks Pt seen and discussed with staff. Recived ETO yesterday due to aggression and threatening behavior. He remains delusional and paranoid and grandiose, but has not been aggressive today. He was compliant with medications today and tolerating without side effects. Objective Alert: Yes [place]: Person, Place, Date Mood: Agitated (becomes increasingly agitated as interview proceeds), Other Affect: Restricted Memory Intact: Comment (intact) Hallucinations: Auditory (Appears int stim) Delusions: Yes Delusion Type: Paranoid Suicidal: Ideation (No SI) Homicidal: Ideation (Threatening violence if not discharged.) Insight/Judgment poor Vitals/IOs Vital Signs Date Time Temp Pulse Resp B/P (MAP) Pulse Ox O2 Delivery O2 Flow Rate FiO2 01/08/17 06:02 98.4 68 18 103/55 (71) 99 01/06/17 02:10 Room Air Assessment & Plan Problem List: (1) Schizophrenia ICD Codes: F20.9 - Schizophrenia, unspecified Status: Acute (2) Cannabis abuse ICD Codes: F12.10 - Cannabis abuse, uncomplicated Status: Chronic Assessment & Plan Continue current tx plan. Estimated LOS: days Justification for Cont. Inpt. impairments in reality testing Request HC Surrog/Guard Advoc?: Yes Problem Qualifiers (1) Schizophrenia: Qualified Codes: F20.0 - Paranoid schizophrenia Rosana Jaramillo MD Jan 08, 2017 12:53
[2017-01-08] MEDS: LORazepam 2 MG/ML VIAL IM PRN (18:20)
--- NOTE | 2017-01-08 18:34 | EKG ---
Date Performed: 01/07/2017 Time Performed: 17:04:43 PTAGE: 31 years EKG: SINUS BRADYCARDIA EARLY REPOLARIZATION BORDERLINE ECG NO PREVIOUS TRACING DOCTOR: Jay Sarkar Interpretating Date/Time 01/08/2017 18:32:18
[2017-01-08 18:46] VITALS: BP 109/62; PULSE 64; RESP 18; TEMP 98.7; O2SAT 99
[2017-01-09 06:07] VITALS: BP 129/96; PULSE 76; RESP 18; TEMP 97.7; O2SAT 98
[2017-01-09] MEDS: HALOPERIDOL 5 MG TAB PO SCH ×2 (08:42→21:05)
--- NOTE | 2017-01-09 11:20 | HHI.PYPN ---
Subjective Remarks Pt seen and discussed with staff. He has been compliant with treatment and denies medication side effects. He became agitated yesterday and required ETO. Today he became upset this morning, but was able to process with RN and calmed down without further intervention. He remains paranoid and alludes to others conspiring against him. No SI/HI Objective Alert: Yes [place]: Person, Place, Date Mood: Anxious, Other Affect: Restricted Memory Intact: Comment (intact) Hallucinations: Auditory (Appears less int stim) Delusions: Yes Delusion Type: Paranoid Suicidal: Ideation (No SI) Homicidal: Ideation (Threatening violence if not discharged.) Insight/Judgment poor Vitals/IOs Vital Signs Date Time Temp Pulse Resp B/P (MAP) Pulse Ox O2 Delivery O2 Flow Rate FiO2 01/09/17 06:07 97.7 76 18 129/96 (107) 98 01/06/17 02:10 Room Air Assessment & Plan Problem List: (1) Schizophrenia ICD Codes: F20.9 - Schizophrenia, unspecified Status: Acute (2) Cannabis abuse ICD Codes: F12.10 - Cannabis abuse, uncomplicated Status: Chronic Assessment & Plan Continue current tx plan Estimated LOS: days Justification for Cont. Inpt. impairments in reality Request HC Surrog/Guard Advoc?: Yes Problem Qualifiers (1) Schizophrenia: Qualified Codes: F20.0 - Paranoid schizophrenia Rosana Jaramillo MD Jan 09, 2017 11:20
[2017-01-09 18:45] VITALS: BP 112/64; PULSE 64; RESP 18; TEMP 98.1; O2SAT 97
[2017-01-09] MEDS: LORazepam 1 MG TAB PO PRN (21:06)
[2017-01-10 06:03] VITALS: BP 117/68; PULSE 62; RESP 16; TEMP 98.5; O2SAT 100
[2017-01-10] MEDS: HALOPERIDOL 5 MG TAB PO SCH ×2 (09:00→21:10)
--- NOTE | 2017-01-10 09:48 | HHI.PYPN ---
Subjective Remarks Patient seen and examined with nurse. Chart reviewed. Case discussed with RN. Patient makes initial effort to remain calm in service of obtaining discharge today. He is worried about making it to a flight communications officer appointment tomorrow. I have asked counselor to help patient with this. Denies side effects from medications. No evidence of EPS. Patient is unable to contain himself however and grows increasingly paranoid and belligerent. He says he will refuse meds. He becomes increasingly intrusive, threatening, agitated. "I 'm not fucking crazy!" Threatens violence obliquely saying he "knows people on the outside" who will exact retribution on the staff if he is held inpatient. He cannot be verbally redirected by staff, and I ordered the patient medicated with Haldol 10mg, Ativan 2mg and Benadryl 50mg for safety (charting does not reflect this because of EMR issues, but RN assures me this was given as ordered) . No side effects from medications. No physical complaints. Review of Systems ROS Limitations: Uncooperative Other Limited ROS Objective Alert: Yes [place]: Person, Place, Date Mood: Agitated, Angry, Anxious Affect: Restricted Memory Intact: Comment (not formally assessed) Hallucinations: Auditory (Int stim) Delusions: Yes Delusion Type: Paranoid Suicidal: Ideation (No SI) Homicidal: Ideation (Continues to threaten as above.) Insight/Judgment Poor Remarks No hand tremor, cogwheeling, dystonia, or dyskinesias. Grooming and hygiene fair. Thought process perseverative on discharge. Labs Labs reviewed. EKG sinus jordana with QTc 384ms. Vitals/IOs Vital Signs Date Time Temp Pulse Resp B/P (MAP) Pulse Ox O2 Delivery O2 Flow Rate FiO2 01/10/17 06:03 98.5 62 16 117/68 (84) 100 Assessment & Plan Problem List: (1) Schizophrenia ICD Codes: F20.9 - Schizophrenia, unspecified Status: Acute (2) Cannabis abuse ICD Codes: F12.10 - Cannabis abuse, uncomplicated Status: Chronic Assessment & Plan Haldol Dec 100mg IM today. Plan to administer additional Haldol Decanoate after the appropriate interval to bring the total dose to 10-20 times the short acting daily dose. Continue Haldol supplementation PO/short-acting IM. To consider a mood stabilizer if patient will accept this. Continue to monitor on the high acuity unit. Continue other medications and care as ordered. Justification for Cont. Inpt. Impairment in safety. Impairment in reality construction. Medication changes in process. High risk for decompensation in less restrictive environment. Discharge Planning Pending psychiatric stabilization. Request HC Surrog/Guard Advoc?: Yes Problem Qualifiers (1) Schizophrenia: Qualified Codes: F20.0 - Paranoid schizophrenia Olayinka Galvez MD Jan 10, 2017 09:48
[2017-01-10] MEDS ORDERED: HALOPERIDOL DECANOATE 50 MG/ML VIAL IM SCH (10:00)
[2017-01-11 06:09] VITALS: BP 119/71; PULSE 55; RESP 18; TEMP 97.5; O2SAT 100
[2017-01-11] MEDS: HALOPERIDOL 5 MG TAB PO SCH ×2 (09:05→20:43)
[2017-01-11] MEDS: diphenhydrAMINE HCL 50 MG/ML VIAL IM PRN (09:07)
[2017-01-11] MEDS: HALOPERIDOL LACTATE 5 MG/ML AMP IM PRN (09:07)
[2017-01-11] MEDS: LORazepam 2 MG/ML VIAL IM PRN (09:07)
--- NOTE | 2017-01-11 09:55 | HHI.PYPN ---
Subjective Remarks Patient seen and examined with nurse. Chart reviewed. Case discussed in treatment team. Nursing staff reports that the patient remains quite paranoid. On my exam, patient remains paranoid re: mother. Also seems to have her druze preoccupation. Insight into illness is poor, and the patient in fact says, "I don't have an illness!" He says his mother is prohibited from [facility] [employer]/ex parte'ing him. He initially denies HI but then threatens violence against this press writer to tech. Begins to escalate, and he was medicated with available behavioral PRNs. No side effects from medications. No physical complaints. Received a message that the patient's mother would like a call. I did endeavor to reach her by phone at 10 AM this morning and left a voicemail requesting a call back. I also note that the mother has produced a letter expressing her concerns about the patient's behavior prior to admission. I have reviewed this and left it on the chart. Review of Systems ROS Limitations: Psychotic, Poor Historian Except as stated in HPI: all other systems reviewed are Neg Objective Alert: Yes [place]: Person, Place, Date Mood: Angry, Anxious Affect: Restricted Memory Intact: Comment (not formally assessed) Hallucinations: Auditory (remains int stim) Delusions: Yes Delusion Type: Paranoid Suicidal: Ideation (No SI) Homicidal: Ideation (Ongoing threats of violence.) Insight/Judgment Poor Remarks No motor abnormalities noted. Thought process perseverative on discharge. Speech within normal limits for rate, tone and volume. Grooming and hygiene fair. Labs Labs reviewed. Vitals/IOs Vital Signs Date Time Temp Pulse Resp B/P (MAP) Pulse Ox O2 Delivery O2 Flow Rate FiO2 01/11/17 06:09 97.5 55 18 119/71 (87) 100 Assessment & Plan Problem List: (1) Schizophrenia ICD Codes: F20.9 - Schizophrenia, unspecified Status: Acute Assessment & Plan: Rule out schizoaffective disorder (2) Cannabis abuse ICD Codes: F12.10 - Cannabis abuse, uncomplicated Status: Chronic Assessment & Plan Definitely seems to be an angry, affective component to the patient's illness. I will add carbamazepine 200 mg twice daily if he will take it for mood stabilization. LFTs and platelets okay. Plan to check a level after the appropriate interval. Continue Haldol 10mg PO/IM BID and plan for additional Haldol Decanoate. Continue to monitor on the high acuity unit. Continue other medications and care as ordered. Justification for Cont. Inpt. Impairment in reality construction. Medication changes in process. High risk for decompensation and less restrictive environment. Discharge Planning Pending psychiatric stabilization Request HC Surrog/Guard Advoc?: Yes Problem Qualifiers (1) Schizophrenia: Qualified Codes: F20.0 - Paranoid schizophrenia Olayinka Galvez MD Jan 11, 2017 09:55
[2017-01-11] MEDS: diphenhydrAMINE HCL 50 MG CAP PO PRN (17:33)
[2017-01-11 18:11] VITALS: BP 104/58; PULSE 57; RESP 18; TEMP 97.3; O2SAT 99
[2017-01-11] MEDS: carBAMazepine 200 MG TAB PO SCH (20:44)
[2017-01-12 06:15] VITALS: BP 98/63; PULSE 62; RESP 18; TEMP 97.9; O2SAT 100
[2017-01-12] MEDS: HALOPERIDOL 5 MG TAB PO SCH ×2 (08:51→20:23)
[2017-01-12] MEDS: carBAMazepine 200 MG TAB PO SCH ×2 (08:53→20:23)
--- NOTE | 2017-01-12 10:59 | HHI.PYPN ---
Subjective Remarks Patient seen and examined with counselor and nurse. Chart reviewed. Case discussed with nursing staff. On my examination today, patient seems much calmer. He says that he feels subjectively calmer. He apologizes for his behavior earlier in the admission and says that his hostility and defensiveness stem from his history of interacting with the healthcare system in the skilled nursing. He denies AVH. No SI/HI. We discuss his medication regimen, which he is tolerating well. No physical complaints. I was able to reach patient's mother this afternoon. She had no particular questions and was just seeking a clinical update in her role as HCS, which I have provided. She plans to be at [employer] tomorrow. Review of Systems Except as stated in HPI: all other systems reviewed are Neg Objective Alert: Yes [place]: Person, Place, Date Mood: Calm Affect: Appropriate Memory Intact: Comment (Not assessed) Hallucinations: Other (denies AVH) Delusions: No Delusion Type: Other (no delusions appreciated) Suicidal: Ideation (No SI) Homicidal: Ideation (no HI) Insight/Judgment Poor Remarks No motor abnormalities noted. Thought process fairly linear. Grooming and hygiene good. Labs Labs reviewed. Vitals/IOs Vital Signs Date Time Temp Pulse Resp B/P (MAP) Pulse Ox O2 Delivery O2 Flow Rate FiO2 01/12/17 06:15 97.9 62 18 98/63 (75) 100 Assessment & Plan Problem List: (1) Schizophrenia ICD Codes: F20.9 - Schizophrenia, unspecified Status: Acute (2) Cannabis abuse ICD Codes: F12.10 - Cannabis abuse, uncomplicated Status: Chronic Assessment & Plan Continue oral Haldol supplementing Haldol Decanoate. Plan remains for additional Haldol Decanoate 4-7 days after initial injection. Continue carbamazepine. Plan to check a level after the appropriate interval. Continue to monitor on the inpatient unit. Continue other medications and care as ordered. Justification for Cont. Inpt. Risk for decompensation in less restrictive environment. Planned medication changes. Discharge Planning Pending outcome of [employer] [facility] tomorrow Request HC Surrog/Guard Advoc?: Yes Problem Qualifiers (1) Schizophrenia: Qualified Codes: F20.0 - Paranoid schizophrenia Olayinka Galvez MD Jan 12, 2017 10:59
[2017-01-12] MEDS: LORazepam 1 MG TAB PO PRN (13:42)
[2017-01-12] MEDS: ACETAMINOPHEN 325 MG TAB PO PRN (13:43)
[2017-01-12 16:09] VITALS: BP_SYST 111; BP_SYST 98; BP_DIAS 55; BP_DIAS 63; PULSE 62; PULSE 70; RESP 18; TEMP 97.9; TEMP 98.2
[2017-01-12] MEDS: diphenhydrAMINE HCL 50 MG CAP PO PRN (20:23)
[2017-01-13 06:03] VITALS: BP 116/68; PULSE 18; RESP 20; TEMP 97.9; O2SAT 98
[2017-01-13] MEDS ORDERED: HALOPERIDOL LACTATE 5 MG/ML AMP IM STA (09:10)
[2017-01-13] MEDS ORDERED: diphenhydrAMINE HCL 50 MG/ML VIAL IM ONE (09:15)
[2017-01-13] MEDS ORDERED: LORazepam 2 MG/ML VIAL IM ONE (09:15)
[2017-01-13] MEDS ORDERED: HALOPERIDOL LACTATE 5 MG/ML AMP IM PRN (09:15)
--- NOTE | 2017-01-13 09:15 | HHI.PYPN ---
Subjective Remarks Patient seen and case discussed with nursing staff. Chart reviewed. Per nursing staff, no behavioral issues overnight. Patient presented initially well in [place] [address]. Patient's mother was also in attendance. He struggled towards the end of the court hearing and suddenly excused himself saying, "I quit! I'm done! I can't take it!" No evident side effects from medications. No physical complaints. I was called to Code [place] upon patient's return to unit from court at ~09:00. Nurse tells me patient picked up chair and tried to put it through window. On my exam, patient remains agitated and dysphoric. He is verbalizing a great deal of paranoid, psychotic material. He tells me, "I'm tired of the R's! I'm tired of the D's! I'm tired of the Nazis! I'm a political prisoner! I know what's going on in this town! I'm tired of this, man! I'm tired of this, man! I'm tired of this, man!" He remains agitated, and I have ordered him placed in seclusion and medicated with Haldol, Ativan and Benadryl. It is felt that he was trying to put chair through glass to [facility] prec. Review of Systems ROS Limitations: Psychotic, Poor Historian Except as stated in HPI: all other systems reviewed are Neg Objective Alert: Yes [place]: Person, Place, Date Mood: Agitated, Angry, Anxious Affect: Restricted Memory Intact: Comment (Not assessed) Hallucinations: Other (No AVH) Delusions: Yes Delusion Type: Paranoid Suicidal: Ideation (No SI) Homicidal: Ideation (no HI) Insight/Judgment poor Remarks No motor abnormalities noted. No hand tremor, no dystonia, no dyskinesia. Thought process linear within delusional themes as noted above. Speech somewhat loud and angry. Grooming and hygiene fair. Labs Labs reviewed. Vitals/IOs Vital Signs Date Time Temp Pulse Resp B/P (MAP) Pulse Ox O2 Delivery O2 Flow Rate FiO2 01/13/17 06:03 97.9 18 20 116/68 (84) 98 Assessment & Plan Problem List: (1) Schizophrenia ICD Codes: F20.9 - Schizophrenia, unspecified Status: Acute (2) Cannabis abuse ICD Codes: F12.10 - Cannabis abuse, uncomplicated Status: Chronic Assessment & Plan Stress of court seems to have uncovered a great deal of occult psychotic material. Titrate Haldol to 10mg TID PO/IM. Plan for additional Haldol Dec over the weekend. Continue CBZ and plan to check a level. Close obs. Violent/ assaultive and escape prec. Continue to monitor on high acuity unit. Continue other medications and care as ordered. Patient's case was placed in continuance for [address], and mother is acting as HCS. Justification for Cont. Inpt. Impairment in safety. Impairment in reality construction. Medication changes in process. High risk for decompensation and less restrictive environment. Discharge Planning Pending psychiatric stabilization Request HC Surrog/Guard Advoc?: Yes Problem Qualifiers (1) Schizophrenia: Qualified Codes: F20.0 - Paranoid schizophrenia Olayinka Galvez MD Jan 13, 2017 09:15
[2017-01-13] MEDS: carBAMazepine 200 MG TAB PO SCH ×2 (10:03→21:00)
[2017-01-13] MEDS: HALOPERIDOL 10 MG TAB PO SCH ×2 (12:20→21:00)
[2017-01-13 16:30] VITALS: BP 116/62; PULSE 67; RESP 18; TEMP 98.3; O2SAT 98
[2017-01-13] MEDS: BENZTROPINE MESYLATE 1 MG TAB PO SCH (21:00)
[2017-01-14] MEDS: diphenhydrAMINE HCL 50 MG CAP PO PRN (02:46)
[2017-01-14 06:07] VITALS: BP 123/70; PULSE 55; RESP 18; TEMP 97.7; O2SAT 98
[2017-01-14] MEDS: BENZTROPINE MESYLATE 1 MG TAB PO SCH ×2 (08:57→21:40)
[2017-01-14] MEDS: carBAMazepine 200 MG TAB PO SCH ×2 (08:57→21:00)
[2017-01-14] MEDS: HALOPERIDOL 10 MG TAB PO SCH ×3 (08:58→21:43)
--- NOTE | 2017-01-14 10:09 | HHI.PYPN ---
Subjective Remarks Patient seen and examined with nurse. Chart reviewed. Case discussed with nursing staff reports the patient was no behavioral problem after calming following his outburst yesterday. He did refuse his Haldol yesterday evening and it does not appear that he was provided with IM Haldol as ordered. On my examination, patient is perseverative initially on having only a BPAD diagnosis and not a primary psychotic disorder diagnosis. He wants to be placed on "Bipolar meds." I did point out that the CBZ, which he also refused yesterday evening, is indicated for BPAD. He remains discharge focused, although he displays some insight by noting that his behavior yesterday "threw that out the window." He continues to believe that he is a "political prisoner" because "I am a person of notoriety and my celebrity makes my case more high profile." He makes allusion to receiving this information from the TV, and I do note him later sitting close to the TV in the day area, staring raptly at it. No side effects from medications. No physical complaints. Review of Systems ROS Limitations: Psychotic, Poor Historian Except as stated in HPI: all other systems reviewed are Neg Objective Alert: Yes [place]: Person, Place (at least) Mood: Other (Dysphoric) Affect: Restricted Memory Intact: Comment (Not formally assessed) Hallucinations: Other (No AVH) Delusions: Yes Delusion Type: Paranoid, Other (Suspect ideas of reference) Suicidal: Ideation (No SI) Homicidal: Ideation (No HI) Insight/Judgment Poor Remarks No motor abnormalities noted. Thought process linear within delusional schema. Grooming and hygiene fair. Labs Labs reviewed. Vitals/IOs Vital Signs Date Time Temp Pulse Resp B/P (MAP) Pulse Ox O2 Delivery O2 Flow Rate FiO2 01/14/17 06:07 97.7 55 18 123/70 (87) 98 Assessment & Plan Problem List: (1) Schizoaffective disorder ICD Codes: F25.9 - Schizoaffective disorder, unspecified Status: Acute (2) Cannabis abuse ICD Codes: F12.10 - Cannabis abuse, uncomplicated Status: Chronic Assessment & Plan I do suspect the patient has primary psychotic illness, not a primary affective illness. However, there does seem to be a significant affective component, and patient's mother has reported that the historical diagnosis for the patient is schizoaffective disorder, bipolar type. I will adjust the diagnosis to schizoaffective disorder. Continue oral Haldol as ordered. Plan to administer additional Haldol decanoate over the weekend to bring the total dose to 300 mg, or 10 times the oral dose. Continue carbamazepine as ordered. Check a carbamazepine level after the weekend. Continue to monitor on the high acuity unit. Continue other medications and care as ordered. Justification for Cont. Inpt. Impairment in reality construction. High risk for decompensation and less restrictive environment. Medication changes in process. Discharge Planning Pending psychiatric stabilization. Request HC Surrog/Guard Advoc?: Yes Problem Qualifiers (1) Schizoaffective disorder: Qualified Codes: F25.0 - Schizoaffective disorder, bipolar type Olayinka Galvez MD Jan 14, 2017 10:09
[2017-01-14 15:43] VITALS: BP 129/73; PULSE 90; RESP 19; TEMP 98.7; O2SAT 99
[2017-01-14] MEDS: ACETAMINOPHEN 325 MG TAB PO PRN (17:13)
[2017-01-15] MEDS: LORazepam 1 MG TAB PO PRN (00:23)
[2017-01-15 06:12] VITALS: BP 124/83; PULSE 65; RESP 16; TEMP 97.5; O2SAT 98
[2017-01-15] MEDS: BENZTROPINE MESYLATE 1 MG TAB PO SCH ×2 (08:38→21:01)
[2017-01-15] MEDS: HALOPERIDOL 10 MG TAB PO SCH ×3 (08:38→21:00)
[2017-01-15] MEDS: carBAMazepine 200 MG TAB PO SCH ×2 (08:38→21:03)
--- NOTE | 2017-01-15 17:17 | HHI.PYPN ---
Subjective Remarks Patient was seen and case discussed with nursing. Patient has not had to have any etos today. During this interview he is bright, cheerful, somewhat elated, and nonthreatening. However per staff, he was threatening the techs when he could not go outside. Compliant with medications. Remains perseverative and entitled on various aspects of his stay Objective Alert: Yes [place]: Person, Place (at least) Mood: Calm, Other Affect: Other (mildly elated) Memory Intact: Comment (Not formally assessed) Hallucinations: Other (No AVH) Delusions: Yes Delusion Type: Paranoid, Other (vigilant) Suicidal: Ideation (No SI) Homicidal: Ideation (No HI) Insight/Judgment Poor Vitals/IOs Vital Signs Date Time Temp Pulse Resp B/P (MAP) Pulse Ox O2 Delivery O2 Flow Rate FiO2 01/15/17 06:12 97.5 65 16 124/83 (97) 98 Assessment & Plan Problem List: (1) Schizoaffective disorder ICD Codes: F25.9 - Schizoaffective disorder, unspecified Status: Acute (2) Cannabis abuse ICD Codes: F12.10 - Cannabis abuse, uncomplicated Status: Chronic Assessment & Plan Continue current treatment plan Justification for Cont. Inpt. Patient would decompensate in a less restrictive setting Request HC Surrog/Guard Advoc?: Yes Problem Qualifiers (1) Schizoaffective disorder: Qualified Codes: F25.0 - Schizoaffective disorder, bipolar type Lc Stone DO Jan 15, 2017 17:17
[2017-01-15 18:48] VITALS: BP 125/71; PULSE 62; RESP 17; TEMP 98.4; O2SAT 99
[2017-01-15] MEDS: traZODone HCL 50 MG TAB PO SCH (21:00)
[2017-01-15] MEDS: diphenhydrAMINE HCL 50 MG CAP PO PRN (21:01)
[2017-01-16 05:49] VITALS: BP 127/62; PULSE 56; RESP 18; TEMP 97.7; O2SAT 99
[2017-01-16] MEDS: HALOPERIDOL LACTATE 5 MG/ML AMP IM PRN (08:06)
[2017-01-16] MEDS: diphenhydrAMINE HCL 50 MG/ML VIAL IM PRN (08:06)
[2017-01-16] MEDS: LORazepam 2 MG/ML VIAL IM PRN (08:07)
[2017-01-16] MEDS ORDERED: HALOPERIDOL DECANOATE 50 MG/ML VIAL IM ONE (09:00)
[2017-01-16] MEDS: HALOPERIDOL 10 MG TAB PO SCH ×3 (09:00→21:07)
[2017-01-16] MEDS: carBAMazepine 200 MG TAB PO SCH ×2 (09:32→21:05)
[2017-01-16] MEDS: BENZTROPINE MESYLATE 1 MG TAB PO SCH ×2 (09:32→21:06)
--- NOTE | 2017-01-16 16:22 | HHI.PYPN ---
Subjective Remarks Patient was seen and case discussed with nursing. Patient is perseverative on showing is good behavior so he can be discharged next week. Behavior has improved but he does remain symptomatic. He has not threatened anyone but remains entitled with various peculiarities of his treatment, today is irritable this morning because of pancakes. Per nursing, he had a meeting with his mother yesterday. After that meeting mother relate that she is uncomfortable and afraid around Ángel. Ángel told her that he will inherit $ 100 million from a great God man. And that the news changes based on his thoughts on the TV. When asked about these symptoms, he denied all of them. During this interview, he seems elated. Denies suicidal or homicidal ideation intent or plan. Compliant with medications, tolerating injection well Objective Alert: Yes [place]: Person, Place (at least), Date Mood: Calm Affect: Labile, Other (elevated) Memory Intact: Comment (Not formally assessed) Hallucinations: Other (No AVH) Delusions: Yes Delusion Type: Grandiose, Other (per mother's report, grandiose delusions and ideas of reference) Suicidal: Ideation (No SI) Homicidal: Ideation (No HI) Insight/Judgment Poor Vitals/IOs Vital Signs Date Time Temp Pulse Resp B/P (MAP) Pulse Ox O2 Delivery O2 Flow Rate FiO2 01/16/17 05:49 97.7 56 18 127/62 (83) 99 Assessment & Plan Problem List: (1) Schizoaffective disorder ICD Codes: F25.9 - Schizoaffective disorder, unspecified Status: Acute (2) Cannabis abuse ICD Codes: F12.10 - Cannabis abuse, uncomplicated Status: Chronic Assessment & Plan Continue current treatment plan Justification for Cont. Inpt. Patient would decompensate in a less restrictive setting Request HC Surrog/Guard Advoc?: Yes Problem Qualifiers (1) Schizoaffective disorder: Qualified Codes: F25.0 - Schizoaffective disorder, bipolar type Lc Stone DO Jan 16, 2017 16:22
[2017-01-16 18:00] VITALS: BP 117/66; PULSE 84; RESP 17; TEMP 98.1; O2SAT 99
[2017-01-16] MEDS: traZODone HCL 50 MG TAB PO SCH (21:05)
[2017-01-17 05:56] VITALS: BP_SYST 120; BP_SYST 131; BP_DIAS 81; BP_DIAS 90; PULSE 56; RESP 18; TEMP 98.1; O2SAT 98
[2017-01-17] MEDS: BENZTROPINE MESYLATE 1 MG TAB PO SCH ×2 (09:16→21:18)
[2017-01-17] MEDS: carBAMazepine 200 MG TAB PO SCH ×2 (09:16→21:17)
[2017-01-17] MEDS: HALOPERIDOL 10 MG TAB PO SCH ×3 (09:16→21:17)
--- NOTE | 2017-01-17 11:20 | HHI.PYPN ---
Subjective Remarks Patient seen and examined with counselor and nurse. Chart reviewed. Case discussed with nursing staff who reports patient remains argumentative and believes that he is being mentioned in the news on the television. On my examination today, the patient is ingratiating and superficial in service of obtaining his discharge. He is quite discharge focused. He insists that he is in a good mood and not suffering from any psychiatric symptoms generally. He does continue to appear internally preoccupied. Counselor has reached out to patient's mother who visited with the patient over the weekend, and she reportedly remains concerned that the patient is quite symptomatic. Denies side effects from medications. No physical complaints. Review of Systems ROS Limitations: Psychotic, Poor Historian Except as stated in HPI: all other systems reviewed are Neg Objective Alert: Yes [place]: Person, Place, Date Mood: Anxious Affect: Other (superficial, somewhat elevated) Memory Intact: Comment (Not formally assessed) Hallucinations: Other (appears internally preoccupied) Delusions: Yes Delusion Type: Other (suspect ongoing delusions) Suicidal: Ideation (No SI) Homicidal: Ideation (No HI) Insight/Judgment Poor Remarks No motoric abnormalities noted. No signs of sedation or other side effects from medications. Thought process perseverative on discharge. Grooming and hygiene fair. Labs Test 01/17/17 09:17 Carbamazepine (Tegretol) Level 10.2 MCG/ML Labs reviewed. Tegretol level within the therapeutic range. Vitals/IOs Vital Signs Date Time Temp Pulse Resp B/P (MAP) Pulse Ox O2 Delivery O2 Flow Rate FiO2 01/17/17 05:56 98.1 56 18 131/81 (98) 98 120/90 (100) Assessment & Plan Problem List: (1) Schizoaffective disorder ICD Codes: F25.9 - Schizoaffective disorder, unspecified Status: Acute (2) Cannabis abuse ICD Codes: F12.10 - Cannabis abuse, uncomplicated Status: Chronic Assessment & Plan Add Zyprexa 5 mg at bedtime to existing regimen to manage psychosis. Continue other psychotropics as ordered. Continue to monitor on the high acuity unit. Continue other medications and care as ordered. Justification for Cont. Inpt. Medication changes in process. High risk for decompensation in less restrictive environment. Discharge Planning Pending psychiatric stabilization Request HC Surrog/Guard Advoc?: Yes Problem Qualifiers (1) Schizoaffective disorder: Qualified Codes: F25.0 - Schizoaffective disorder, bipolar type Olayinka Galvez MD Jan 17, 2017 11:20
[2017-01-17 17:52] VITALS: BP 118/63; PULSE 64; RESP 18; TEMP 98.4; O2SAT 99
[2017-01-17] MEDS: diphenhydrAMINE HCL 50 MG CAP PO PRN (21:17)
[2017-01-17] MEDS: traZODone HCL 50 MG TAB PO SCH (21:17)
[2017-01-17] MEDS: OLANZapine ODT 5 MG TAB PO SCH (21:17)
[2017-01-18 06:27] VITALS: BP 111/59; PULSE 53; RESP 18; TEMP 98.1; O2SAT 97
[2017-01-18] MEDS: BENZTROPINE MESYLATE 1 MG TAB PO SCH ×2 (09:00→21:16)
[2017-01-18] MEDS: carBAMazepine 200 MG TAB PO SCH ×2 (09:15→21:16)
[2017-01-18] MEDS: HALOPERIDOL 10 MG TAB PO SCH ×3 (09:16→21:17)
--- NOTE | 2017-01-18 09:38 | HHI.PYPN ---
Subjective Remarks Patient seen and examined with nurse. Chart reviewed. Case discussed in treatment team. On my examination today, patient says that he is "getting stronger, better." He denies any audiovisual hallucinations. He tells me "I got a lot of friends in [place]. I'm a standup comic." We discuss collateral from mother. Patient says he has other places he could stay than with his mother, but he has no contact information. He is agreeable to working with counselor and mother on a safe discharge plan. Denies side effects from meds. No physical complaints. Review of Systems ROS Limitations: Psychotic, Poor Historian Except as stated in HPI: all other systems reviewed are Neg Objective Alert: Yes [place]: Person, Place, Date Mood: Other (mildly elevated) Affect: Other (somewhat expansive) Memory Intact: Comment (Not formally assessed) Hallucinations: Other (remains a little internally stimulated) Delusions: Yes Delusion Type: Grandiose Suicidal: Ideation (No SI) Homicidal: Ideation (No HI) Insight/Judgment Poor Remarks No motoric abnormalities noted. Thought process fairly linear. Grooming and hygiene good. Labs Labs reviewed. Vitals/IOs Vital Signs Date Time Temp Pulse Resp B/P (MAP) Pulse Ox O2 Delivery O2 Flow Rate FiO2 01/18/17 06:27 98.1 53 18 111/59 (76) 97 Assessment & Plan Problem List: (1) Schizoaffective disorder ICD Codes: F25.9 - Schizoaffective disorder, unspecified Status: Acute (2) Cannabis abuse ICD Codes: F12.10 - Cannabis abuse, uncomplicated Status: Chronic Assessment & Plan Continue Zyprexa as ordered; patient received first dose last night. To consider further titration of this agent for mood stabilization and psychosis. Continue oral Haldol supplementing Haldol Dec. Continue CBZ as ordered. Continue other medications and care as ordered. Justification for Cont. Inpt. High risk for decompensation in less restrictive environment. Discharge Planning Pending psychiatric stabilization and safe discharge plan. Request HC Surrog/Guard Advoc?: Yes Problem Qualifiers (1) Schizoaffective disorder: Qualified Codes: F25.0 - Schizoaffective disorder, bipolar type Olayinka Galvez MD Jan 18, 2017 09:38
--- NOTE | 2017-01-18 11:49 | PD.TTN ---
Patient Problems 1. Discharge planning 2. Medication compliance 3. Knowledge deficit 4. Lack of coping skills Progress Toward Goals Provider Present: Dr. Kourtney Galvez Provider Input: Dr. Galvez treatment team met to discuss patient's treatment plan, discharge and medication. Medication will be given for mood and stablization. Patient will remain on unit until stablized Nurse(s) Input: Patient's nurse Savanah Flores reports patient remains grandiose, is an opportunities, medication compliant Psychiatric Counselors Present: Nita Moreland [facility] Psych Therapist Input: Patient presented anxious, nervous, easily agitated, intrusive. affect blunted. Patient's speech was clear, hyperverbal, pressured. Patient made good eye contact. Patient denies to be internally stimulated but does present to be grandiose. Patient is exit seeking, focused on discharge. Patient is medication compliant. Patient is alert to person, place but has poor insight into his situation. Group Spec/RT/OT/VIDAL Present: YOUNG Jain Group Spec/RT/OT/VIDAL Input: Patient participates 75% of groups. [facility] Jan 18, 2017 11:49
[2017-01-18 18:13] VITALS: BP 133/61; PULSE 64; RESP 18; TEMP 98.2; O2SAT 98
[2017-01-18] MEDS: OLANZapine ODT 5 MG TAB PO SCH (21:16)
[2017-01-18] MEDS: traZODone HCL 50 MG TAB PO SCH (21:16)
[2017-01-19] MEDS: diphenhydrAMINE HCL 50 MG CAP PO PRN ×2 (05:26→22:55)
[2017-01-19 05:47] VITALS: BP 111/68; PULSE 53; RESP 18; TEMP 98.1; O2SAT 98
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
[2017-01-19] MEDS: carBAMazepine 200 MG TAB PO SCH ×2 (09:57→21:36)
[2017-01-19] MEDS: BENZTROPINE MESYLATE 1 MG TAB PO SCH ×2 (09:57→21:36)
[2017-01-19] MEDS: HALOPERIDOL 10 MG TAB PO SCH ×3 (09:58→21:36)
--- NOTE | 2017-01-19 15:57 | PD.CONS ---
HPI Service [facility] Consult Requested By Psychiatry team Reason for Consult Dysuria, nausea Primary Care Physician No Primary Care Physician Diagnoses: History of Present Illness Written by Debbie Simon, acting as scribe for Dr. Iraheta on 01/19/17 at 15:57. Patient is a 31-year-old male with no significant primary medical history who came in as an ex parte order for psychiatric evaluation. He is now admitted to inpatient psychiatry unit for further evaluation. Consulted for dysuria, nausea. Patient seen and examined today. Reports discomfort starting urine, mild burning sensation. States he has nausea before by 1 away and doesn't have nausea right now. Reports throbbing headache last night but was relieved with using Benadryl. Otherwise, denies fevers, chills, vomiting, abdominal pain, abdominal cramping. Denies hematuria. Denies shortness of breath/dyspnea. Denies chest pain, palpitations. Review of Systems Except as stated in HPI: all other systems reviewed are Neg Past Family Social History Allergies: Coded Allergies: clotrimazole (Unverified Allergy, Severe, RASH, 01/05/17) Past Medical History None Past Surgical History None Reported Medications None Active Ordered Medications Current Medications Medications (Trade) Dose Ordered Sig/Kaushik Route Start Time Stop Time Status Last Admin (Tylenol) 650 mg Q4H PRN PO 01/06/17 09:15 01/14/17 17:13 (Milk Of Magnesia Liq) 30 ml DAILY PRN PO 01/06/17 09:15 (Mag-Al Plus Susp Liq) 30 ml Q6H PRN PO 01/06/17 09:15 (Haldol Inj) 5 mg Q6HR PRN IM 01/06/17 17:00 01/16/17 08:06 (Benadryl) 50 mg Q6H PRN PO 01/06/17 17:00 01/19/17 05:26 (Benadryl Inj) 50 mg Q6H PRN IM 01/06/17 17:00 01/16/17 08:06 (Ativan) 2 mg Q6H PRN PO 01/07/17 17:00 01/15/17 00:23 (Ativan Inj) 2 mg Q6H PRN IM 01/07/17 17:00 01/16/17 08:07 (TEGretol) 200 mg Q12HR PO 01/11/17 21:00 01/19/17 09:57 (Haldol) 10 mg DAILY@0900,1300,2100 PO 01/13/17 13:00 01/19/17 13:00 (Haldol Inj) 10 mg DAILY@0900,1300,2100 PRN IM 01/13/17 09:15 (Cogentin) 0.5 mg Q12HR PO 01/13/17 21:00 01/19/17 09:57 (Desyrel) 50 mg HS PO 01/15/17 21:00 01/18/17 21:16 (ZyPREXA ZYDIS ODT) 5 mg HS PO 01/17/17 21:00 01/18/17 21:16 Family History Unaware of any family medical history Social History Rare alcohol use 2-3 cigarettes daily Marijuana use Physical Exam Vital Signs Vital Signs Date Time Temp Pulse Resp B/P (MAP) Pulse Ox O2 Delivery O2 Flow Rate FiO2 01/19/17 05:47 98.1 53 18 111/68 (82) 98 01/18/17 18:13 98.2 64 18 133/61 (85) 98 Physical Exam GENERAL: This is a well-nourished, well-developed patient, in no apparent distress. SKIN: No rashes, ecchymoses or lesions. Cool and dry. HEAD: Atraumatic. Normocephalic. No temporal or scalp tenderness. EYES: Pupils equal round and reactive. Extraocular motions intact. No scleral icterus. No injection or drainage. ENT: Nose without bleeding. Throat without erythema. Uvula midline. Airway patent. NECK: Trachea midline. Supple. CARDIOVASCULAR: Regular rate and rhythm without murmurs, gallops, or rubs. RESPIRATORY: Clear to auscultation. Breath sounds equal bilaterally. No wheezes , rales, or rhonchi. GASTROINTESTINAL: Abdomen soft, non-tender, nondistended. Bowel sounds active 4. No CVA tenderness. MUSCULOSKELETAL: Extremities without clubbing, cyanosis, or edema. NEUROLOGICAL: Awake and alert. Cranial nerves II through XII intact. Motor and sensory grossly within normal limits. Five out of 5 muscle strength in all muscle groups. Normal speech. Assessment and Plan Problem List: (1) Urinary symptom or sign ICD Code: R39.9 - Unspecified symptoms and signs involving the genitourinary system (2) Cannabis abuse ICD Code: F12.10 - Cannabis abuse, uncomplicated Status: Chronic (3) Schizophrenia ICD Code: F20.9 - Schizophrenia, unspecified Status: Acute Assessment and Plan Patient is a 31-year-old male with no significant primary medical history who came in as an ex parte order for psychiatric evaluation. Schizophrenia - Managed by psychiatry team Urinary symptoms - Burning discomfort, difficulty starting urine. - Check UA - Labs reviewed no leukocytosis, within normal blood chemistry. Elevated LDL - Counseled on lifestyle change Tobacco use - Counseled. Nicotine patch. DVT prop low risk ambulatory This note was transcribed by marcos [Debbie Simon]. I, Dr. Josemanuel Iraheta personally performed the history, physical exam, and medical decision making; and confirmed the accuracy of the information in the transcribed note. Authenticated by Dr. Josemanuel Iraheta on 01/19/17 at 16:07. Code Status Full code Discussed Condition With Discussed patient, nursing Problem Qualifiers (1) Schizophrenia: Qualified Codes: F20.0 - Paranoid schizophrenia Debbie Hein Jan 19, 2017 15:57 Josemanuel Iraheta MD Jan 19, 2017 15:57
[2017-01-19 17:20] LABS: BLOOD, URINE NEG (NEG); COMMENT (UR) CULT NOT INDICATED; CULTURE IF INDICATED CULT NOT INDICATED; GLUCOSE,URINE NEG (NEG); KETONE, URINE NEG (NEG); NITRITE,URINE NEG (NEG); PH, URINE 6.5 (5.0-8.5); URINE COLOR YELLOW (YELLW/STRAW)
[2017-01-19 18:17] VITALS: BP 152/62; PULSE 63; RESP 16; TEMP 97.8; O2SAT 99
[2017-01-19] MEDS: traZODone HCL 50 MG TAB PO SCH (21:36)
[2017-01-19] MEDS: OLANZapine ODT 5 MG TAB PO SCH (21:36)
[2017-01-20] MEDS: carBAMazepine 200 MG TAB PO SCH ×2 (09:26→21:03)
[2017-01-20] MEDS: BENZTROPINE MESYLATE 1 MG TAB PO SCH ×2 (09:26→21:03)
[2017-01-20] MEDS: HALOPERIDOL 10 MG TAB PO SCH ×3 (09:26→21:06)
--- NOTE | 2017-01-20 11:33 | HHI.PYPN ---
Subjective Remarks Patient seen and examined with counselor. Chart reviewed. Case discussed with nursing staff. No behavioral issues overnight. On my examination today, the patient is calm and cooperative and says that he is "getting better every day." He does say that he doesn't think that he is mentally ill clarifies to say that he does not think that he is presently symptomatic. He continues to insist that his mother wants to have him home, although counselor's contact with her yesterday suggests otherwise. Patient insists that the house they reside in is in both their names, and so he may return there if he wishes. Denies SI/HI/AVH. No side effects from medications. No physical complaints. No ongoing complaints of nausea or dysuria. Review of Systems Except as stated in HPI: all other systems reviewed are Neg Objective Alert: Yes [place]: Person, Place, Date Mood: Calm Affect: Appropriate (remains appropriate) Memory Intact: Comment (Not formally assessed) Hallucinations: Other (denies AVH) Delusions: No Delusion Type: Other (no delusions elicited) Suicidal: Ideation (denies SI) Homicidal: Ideation (denies HI) Insight/Judgment Poor Remarks No motor abnormalities noted. Thought process perseverative on discharge. Labs Test 01/19/17 16:45 Urine Color YELLOW Urine Turbidity CLEAR Urine pH 6.5 Urine Specific [place] 1.021 Urine Protein NEG mg/dL Urine Glucose (UA) NEG mg/dL Urine Ketones NEG mg/dL Urine Occult Blood NEG Urine Nitrite NEG Urine Bilirubin NEG Urine Urobilinogen LESS THAN 2.0 MG/DL Urine Leukocyte Esterase NEG Urine RBC LESS THAN 1 /hpf Urine WBC LESS THAN 1 /hpf Microscopic Urinalysis Comment CULT NOT INDICATED Labs reviewed. Urinalysis bland. Vitals/IOs Vital Signs Date Time Temp Pulse Resp B/P (MAP) Pulse Ox O2 Delivery O2 Flow Rate FiO2 01/19/17 18:17 97.8 63 16 152/62 (92) 99 Assessment & Plan Problem List: (1) Schizoaffective disorder ICD Codes: F25.9 - Schizoaffective disorder, unspecified Status: Acute (2) Cannabis abuse ICD Codes: F12.10 - Cannabis abuse, uncomplicated Status: Chronic Assessment & Plan Continue current psychotropics as ordered. Hospitalist input noted and appreciated. Continue other medications and care as ordered. Justification for Cont. Inpt. Risk for decompensation Discharge Planning Given the disconnect between patient's belief about mother's willingness to have patient home and mother's stated unwillingness to consider same, I think a family meeting is in order. I have asked counselor to arrange such a meeting, in person or telephonically, for Tuesday or shortly after the weekend. Request HC Surrog/Guard Advoc?: Yes Problem Qualifiers (1) Schizoaffective disorder: Qualified Codes: F25.0 - Schizoaffective disorder, bipolar type Olayinka Galvez MD Jan 20, 2017 11:33
--- NOTE | 2017-01-20 15:55 | HHI.PR ---
Subjective Remarks Follow-up visit urinary symptoms. Patient seen today. States he is doing well. Discussed with patient results of urinalysis. Denies pain and discomfort. Denies SOB/ dyspnea. Denies chest pain, palpitations, headaches, dizziness. Denies fevers, chills, n/v/d. Denies hematuria, dysuria. Objective Vitals Vital Signs Date Time Temp Pulse Resp B/P (MAP) Pulse Ox O2 Delivery O2 Flow Rate FiO2 01/19/17 18:17 97.8 63 16 152/62 (92) 99 Objective Remarks GENERAL: This is a well-nourished, well-developed patient, in no apparent distress. SKIN: Warm and dry HEENT: Normocephalic. Pupils equal round and reactive. Nose without bleeding. Airway patent. NECK: Trachea midline. No JVD. Supple. CARDIOVASCULAR: Regular rate and rhythm without murmurs, gallops, or rubs. RESPIRATORY: Clear to auscultation. Breath sounds equal bilaterally. No wheezes , rales, or rhonchi. GASTROINTESTINAL: Abdomen soft, non-tender, nondistended. Bowel Sounds normoactive x4. MUSCULOSKELETAL: Extremities without clubbing, cyanosis, or edema. NEUROLOGICAL: Awake and alert. Oriented to time, place, person. No focal neuro deficit. Moves all extremities. Normal speech. A/P Problem List: (1) Urinary symptom or sign ICD Code: R39.9 - Unspecified symptoms and signs involving the genitourinary system (2) Cannabis abuse ICD Code: F12.10 - Cannabis abuse, uncomplicated Status: Chronic (3) Schizophrenia ICD Code: F20.9 - Schizophrenia, unspecified Status: Acute Assessment and Plan Patient is a 31-year-old male with no significant primary medical history who came in as an ex parte order for psychiatric evaluation. Schizophrenia - Managed by psychiatry team Urinary symptoms - Check UA, negative - Labs reviewed no leukocytosis, within normal blood chemistry - Denies symptoms today Elevated LDL - Counseled on lifestyle change Tobacco use - Counseled. Nicotine patch. DVT prop low risk ambulatory Discussed with patient, nursing, Dr. Iraheta If labs are within normal, we will sign off. Problem Qualifiers (1) Schizophrenia: Qualified Codes: F20.0 - Paranoid schizophrenia Debbie Hein Jan 20, 2017 15:55
[2017-01-20 17:53] VITALS: BP 132/77; PULSE 67; RESP 18; TEMP 98.4; O2SAT 99
[2017-01-20] MEDS: traZODone HCL 50 MG TAB PO SCH (21:03)
[2017-01-20] MEDS: OLANZapine ODT 5 MG TAB PO SCH (21:07)
[2017-01-21 06:16] VITALS: BP 121/73; PULSE 60; RESP 18; TEMP 98.3; O2SAT 99
[2017-01-21] MEDS: BENZTROPINE MESYLATE 1 MG TAB PO SCH ×2 (08:40→20:43)
[2017-01-21] MEDS: HALOPERIDOL 10 MG TAB PO SCH ×3 (08:40→20:45)
[2017-01-21] MEDS: carBAMazepine 200 MG TAB PO SCH ×2 (08:41→20:43)
--- NOTE | 2017-01-21 10:30 | HHI.PYPN ---
Subjective Remarks Patient seen and examined. Chart reviewed. Case discussed with nurse who reports that the patient is endeavoring to be flirtatious with nurse and asking staff inappropriate questions about females. On my exam, patient remains discharge focused. Tells me that his meds "are really working for me." Denies the psychiatric ROS except he says that sleep is still somewhat poor. He is agreeable to titrating Zyprexa to target this symptom. No side effects from medications but does not like taking scheduled anticholinergic. With further questioning, this seems to represent a general aversion to being on so many meds not from any side effect per se. No physical complaints. Family session with patient and counselor along with patient's mother over the phone. Mother explains that she is not presently comfortable accepting patient home now as she feels he has not displayed enough evidence of extended stability , but she does not forestall accepting him home at some point in the future once this criterion is met. Patient seems to accept this news with equanimity and expresses hope that she will accept him home in the future. He does express concern about an upcoming court date since he is to remain on unit for further stabilization, and I have asked the counselor to assist him with this. Review of Systems Except as stated in HPI: all other systems reviewed are Neg Objective Alert: Yes [employer]: Person, Place, Date Mood: Calm Affect: Appropriate Memory Intact: Comment (Not formally assessed) Hallucinations: Other (No AVH) Delusions: No Delusion Type: Other (No delusions) Suicidal: Ideation (No SI) Homicidal: Ideation (No HI) Insight/Judgment Poor Remarks No motor abnormalities noted. Labs Labs reviewed. Vitals/IOs Vital Signs Date Time Temp Pulse Resp B/P (MAP) Pulse Ox O2 Delivery O2 Flow Rate FiO2 01/21/17 06:16 98.3 60 18 121/73 (89) 99 Assessment & Plan Problem List: (1) Schizoaffective disorder ICD Codes: F25.9 - Schizoaffective disorder, unspecified Status: Acute (2) Cannabis abuse ICD Codes: F12.10 - Cannabis abuse, uncomplicated Status: Chronic Assessment & Plan Titrate Zyprexa to 10 mg at bedtime. Continue oral Haldol supplementing Haldol Decanoate. Continue carbamazepine. Sexual precautions. Continue to monitor on the high acuity unit. Continue other medications and care as ordered. Justification for Cont. Inpt. Medication changes. Risk for decompensation in less restrictive environment. Discharge Planning Pending psychiatric stabilization Request HC Surrog/Guard Advoc?: Yes Problem Qualifiers (1) Schizoaffective disorder: Qualified Codes: F25.0 - Schizoaffective disorder, bipolar type Olayinka Galvez MD Jan 21, 2017 10:30
[2017-01-21] MEDS: HALOPERIDOL LACTATE 5 MG/ML AMP IM PRN (17:00)
[2017-01-21] MEDS: LORazepam 2 MG/ML VIAL IM PRN (17:00)
[2017-01-21] MEDS: diphenhydrAMINE HCL 50 MG/ML VIAL IM PRN (17:00)
[2017-01-21] MEDS: OLANZapine ODT 10 MG TAB PO SCH (20:43)
[2017-01-21] MEDS: traZODone HCL 50 MG TAB PO SCH (20:43)
[2017-01-22 05:42] VITALS: BP 115/59; PULSE 58; RESP 18; TEMP 98.1; O2SAT 96
[2017-01-22] MEDS: BENZTROPINE MESYLATE 1 MG TAB PO SCH ×2 (07:45→20:28)
[2017-01-22] MEDS: HALOPERIDOL 10 MG TAB PO SCH ×3 (07:45→20:29)
[2017-01-22] MEDS: carBAMazepine 200 MG TAB PO SCH ×2 (07:45→20:28)
--- NOTE | 2017-01-22 13:10 | HHI.PYPN ---
Subjective Remarks Patient seen and case discussed with nurse. Labs reviewed. No complaints. No behavioral problems. Does not appear psychotic at this time. Review of Systems Except as stated in HPI: all other systems reviewed are Neg Objective Alert: Yes [place]: Person, Place, Date Mood: Calm Affect: Appropriate Memory Intact: Comment (Not formally assessed) Hallucinations: Other (No AVH) Delusions: No Delusion Type: Other (No delusions) Suicidal: Ideation (No SI) Homicidal: Ideation (No HI) Insight/Judgment Fair Vitals/IOs Vital Signs Date Time Temp Pulse Resp B/P (MAP) Pulse Ox O2 Delivery O2 Flow Rate FiO2 01/22/17 05:42 98.1 58 18 115/59 (77) 96 Assessment & Plan Problem List: (1) Schizoaffective disorder ICD Codes: F25.9 - Schizoaffective disorder, unspecified Status: Acute (2) Cannabis abuse ICD Codes: F12.10 - Cannabis abuse, uncomplicated Status: Chronic Assessment & Plan Estimated LOS: days continue current treatment plan. Justification for Cont. Inpt. Allowing medication time to stabilize patient. Request HC Surrog/Guard Advoc?: Yes Problem Qualifiers (1) Schizoaffective disorder: Qualified Codes: F25.0 - Schizoaffective disorder, bipolar type Camilo Lisa MD Jan 22, 2017 13:10
[2017-01-22] MEDS: LORazepam 2 MG/ML VIAL IM PRN (16:50)
[2017-01-22] MEDS: HALOPERIDOL LACTATE 5 MG/ML AMP IM PRN (16:50)
[2017-01-22 17:32] VITALS: BP 144/71; PULSE 73; RESP 17; TEMP 98.5; O2SAT 97
[2017-01-22] MEDS: OLANZapine ODT 10 MG TAB PO SCH (20:28)
[2017-01-22] MEDS: traZODone HCL 50 MG TAB PO SCH (20:28)
[2017-01-23] MEDS: carBAMazepine 200 MG TAB PO SCH ×2 (08:11→21:00)
[2017-01-23] MEDS: HALOPERIDOL 10 MG TAB PO SCH ×3 (08:12→21:00)
[2017-01-23] MEDS: BENZTROPINE MESYLATE 1 MG TAB PO SCH ×2 (08:12→21:00)
--- NOTE | 2017-01-23 13:29 | HHI.PYPN ---
Subjective Remarks Patient seen and examined with nurse. Chart reviewed. Case discussed with nursing staff. No behavioral issues overnight. On my examination today, the patient is in good spirits. He is calm and pleasant. He jokes appropriately about the inclement weather, saying with a smile, "guess I'm not going home today, doc." No psychotic symptoms. Says that he is sleeping well. Denies side effects from medications. Complains of a little bit of dental pain but otherwise no physical complaints. Review of Systems Except as stated in HPI: all other systems reviewed are Neg Objective Alert: Yes [place]: Person, Place, Date Mood: Calm Affect: Appropriate, Euthymic Memory Intact: Comment (Not formally assessed) Hallucinations: Other (no hallucinations) Delusions: No Delusion Type: Other (no delusional material) Suicidal: Ideation (No SI) Homicidal: Ideation (No HI) Insight/Judgment Poor but perhaps improving Remarks No motor abnormalities noted. Thought process linear. Grooming and hygiene good. Labs Labs reviewed. Vitals/IOs Vital Signs Date Time Temp Pulse Resp B/P (MAP) Pulse Ox O2 Delivery O2 Flow Rate FiO2 01/22/17 17:32 98.5 73 17 144/71 (95) 97 Assessment & Plan Problem List: (1) Schizoaffective disorder ICD Codes: F25.9 - Schizoaffective disorder, unspecified Status: Acute (2) Cannabis abuse ICD Codes: F12.10 - Cannabis abuse, uncomplicated Status: Chronic Assessment & Plan Patient seems to be doing well from a psychiatric standpoint. Continue current psychotropics as ordered. I think it is appropriate to trial him on the lower acuity unit, and the patient is agreeable to going over to 2600 when a bed is available. Orajel for dental pain. Continue other medications and care as ordered. Justification for Cont. Inpt. Risk for decompensation Discharge Planning Pending stabilization. Request HC Surrog/Guard Advoc?: Yes Problem Qualifiers (1) Schizoaffective disorder: Qualified Codes: F25.0 - Schizoaffective disorder, bipolar type Olayinka Galvez MD Jan 23, 2017 13:29
[2017-01-23 17:47] VITALS: BP 129/80; PULSE 59; RESP 16; TEMP 98.5; O2SAT 99
[2017-01-23] MEDS: LORazepam 1 MG TAB PO PRN (21:00)
[2017-01-23] MEDS: ACETAMINOPHEN 325 MG TAB PO PRN (21:00)
[2017-01-23] MEDS: traZODone HCL 50 MG TAB PO SCH (21:00)
[2017-01-23] MEDS: diphenhydrAMINE HCL 50 MG CAP PO PRN (21:00)
[2017-01-23] MEDS: OLANZapine ODT 10 MG TAB PO SCH (21:00)
[2017-01-24 05:56] VITALS: BP 108/54; PULSE 63; RESP 18; TEMP 98.3; O2SAT 97
[2017-01-24] MEDS: HALOPERIDOL 10 MG TAB PO SCH ×3 (08:44→21:00)
[2017-01-24] MEDS: BENZTROPINE MESYLATE 1 MG TAB PO SCH ×2 (08:44→21:00)
[2017-01-24] MEDS: carBAMazepine 200 MG TAB PO SCH ×2 (08:44→21:00)
--- NOTE | 2017-01-24 15:49 | HHI.PYPN ---
Subjective Remarks Patient was visited today for psychiatric reevaluation, patient was found calm, cooperative, playing cards in the recreational area of the 2700 unit. Patient says that he is feeling much better, he reports good mood, denies depressive symptoms, denies suicidal and homicidal ideation, he denies visual and auditory hallucinations. He has been compliant with his medications, no agitation or aggressive behavior reported. Review of Systems Other No somatic complaints Objective Alert: Yes [place]: Person, Place, Date Mood: Calm Affect: Appropriate, Euthymic Memory Intact: Comment (Not formally assessed) Hallucinations: Other (no hallucinations) Delusions: No Delusion Type: Other (no delusional material) Suicidal: Ideation (No SI) Homicidal: Ideation (No HI) Insight/Judgment fair Vitals/IOs Vital Signs Date Time Temp Pulse Resp B/P (MAP) Pulse Ox O2 Delivery O2 Flow Rate FiO2 01/24/17 05:56 98.3 63 18 108/54 (72) 97 Assessment & Plan Problem List: (1) Schizoaffective disorder ICD Codes: F25.9 - Schizoaffective disorder, unspecified Status: Acute Assessment & Plan: Patient will continue current psychotropic regimen, supportive motivation provided. (2) Cannabis abuse ICD Codes: F12.10 - Cannabis abuse, uncomplicated Status: Chronic Assessment & Plan Estimated LOS: days Justification for Cont. Inpt. Needs to continue psychiatric hospitalization for stabilization and safety. Request HC Surrog/Guard Advoc?: Yes Problem Qualifiers (1) Schizoaffective disorder: Qualified Codes: F25.0 - Schizoaffective disorder, bipolar type Paco Muir MD Jan 24, 2017 15:49
[2017-01-24 17:28] VITALS: BP 132/71; PULSE 77; RESP 16; TEMP 98.6; O2SAT 98
[2017-01-24] MEDS: traZODone HCL 50 MG TAB PO SCH (21:00)
[2017-01-24] MEDS: ACETAMINOPHEN 325 MG TAB PO PRN (21:00)
[2017-01-24] MEDS: LORazepam 1 MG TAB PO PRN (21:00)
[2017-01-24] MEDS: OLANZapine ODT 10 MG TAB PO SCH (21:00)
[2017-01-25] MEDS: BENZTROPINE MESYLATE 1 MG TAB PO SCH ×2 (08:42→20:39)
[2017-01-25] MEDS: carBAMazepine 200 MG TAB PO SCH ×2 (08:42→20:39)
[2017-01-25] MEDS: HALOPERIDOL 10 MG TAB PO SCH ×3 (08:43→20:41)
--- NOTE | 2017-01-25 10:46 | HHI.PYPN ---
Subjective Remarks Patient seen and examined with nurse. Chart reviewed. Case discussed in treatment team. No behavioral issues noted by nursing staff. On my examination today, patient is calm and cooperative. Denies any active psychiatric symptomatology. Requesting another telephone conference with his mother, and I will try to arrange this for today or perhaps tomorrow. No side effects from medications. No physical complaints. Review of Systems Except as stated in HPI: all other systems reviewed are Neg Objective Alert: Yes [employer]: Person, Place, Date Mood: Calm Affect: Appropriate Memory Intact: Comment (Not formally assessed) Hallucinations: Other (no AVH) Delusions: No Delusion Type: Other (no delusions elicited) Suicidal: Ideation (No SI) Homicidal: Ideation (No HI) Insight/Judgment Poor Remarks No motor abnormalities noted Labs Labs reviewed Vitals/IOs Vital Signs Date Time Temp Pulse Resp B/P (MAP) Pulse Ox O2 Delivery O2 Flow Rate FiO2 01/24/17 17:28 98.6 77 16 132/71 (91) 98 Assessment & Plan Problem List: (1) Schizoaffective disorder ICD Codes: F25.9 - Schizoaffective disorder, unspecified Status: Acute (2) Cannabis abuse ICD Codes: F12.10 - Cannabis abuse, uncomplicated Status: Chronic Assessment & Plan Continue current psychotropics as ordered. Continue to monitor on the inpatient unit. Continue other medications and care as ordered. Justification for Cont. Inpt. Risk for decompensation Discharge Planning Case d/w counselor. Dispo difficult as patient's mother will not accept back until evidence of extended stability and patient has no other safe discharge location that we are aware of. Request HC Surrog/Guard Advoc?: Yes Problem Qualifiers (1) Schizoaffective disorder: Qualified Codes: F25.0 - Schizoaffective disorder, bipolar type Olayinka Galvez MD Jan 25, 2017 10:46
[2017-01-25 17:56] VITALS: BP 121/69; PULSE 86; RESP 18; TEMP 98.6
[2017-01-25] MEDS: ALUMINUM/MAGNESIUM/SIMETH 30 ML CUP PO PRN (20:12)
[2017-01-25] MEDS: BENZOCAINE 7.5% ORAL GEL 9.4 GM TUBE OROPHARYNG PRN (20:12)
[2017-01-25] MEDS: traZODone HCL 50 MG TAB PO SCH (20:39)
[2017-01-25] MEDS: OLANZapine ODT 10 MG TAB PO SCH (20:40)
[2017-01-25] MEDS: ACETAMINOPHEN 325 MG TAB PO PRN (20:42)
[2017-01-26 06:07] VITALS: BP 126/76; PULSE 78; RESP 16; TEMP 97.8; O2SAT 98
[2017-01-26] MEDS: BENZTROPINE MESYLATE 1 MG TAB PO SCH ×2 (09:02→20:51)
[2017-01-26] MEDS: carBAMazepine 200 MG TAB PO SCH ×2 (09:02→20:50)
[2017-01-26] MEDS: HALOPERIDOL 10 MG TAB PO SCH ×3 (09:03→20:53)
--- NOTE | 2017-01-26 10:15 | HHI.PYPN ---
Subjective Remarks Patient seen and examined. Chart reviewed. Case discussed with nursing staff. Case also discussed with counselor who has been in contact with patient's mother about a possible telephone family conference. Patient's mother prefers a [id number] visit with patient during visitation this evening, although this will not allow myself or counselor to be present. On my exam, patient is calm and cooperative. No SI/HI/AVH. No side effects from medications. No physical complaints. Review of Systems Except as stated in HPI: all other systems reviewed are Neg Objective Alert: Yes [place]: Person, Place, Date Mood: Calm Affect: Appropriate Memory Intact: Comment (Not formally assessed) Hallucinations: Other (none) Delusions: No Delusion Type: Other (no delusional material) Suicidal: Ideation (No SI) Homicidal: Ideation (No HI) Insight/Judgment Perhaps improving Remarks No motor abnormalities noted Labs Labs reviewed Vitals/IOs Vital Signs Date Time Temp Pulse Resp B/P (MAP) Pulse Ox O2 Delivery O2 Flow Rate FiO2 01/26/17 06:07 97.8 78 16 126/76 (93) 98 Assessment & Plan Problem List: (1) Schizoaffective disorder ICD Codes: F25.9 - Schizoaffective disorder, unspecified Status: Acute (2) Cannabis abuse ICD Codes: F12.10 - Cannabis abuse, uncomplicated Status: Chronic Assessment & Plan Continue current psychiatric medications as ordered. Continue to monitor on the inpatient unit. Continue other medications and care as ordered. Justification for Cont. Inpt. Discharge planning, risk for decompensation. Discharge Planning Pending outcome of family visit this evening. Request HC Surrog/Guard Advoc?: Yes Problem Qualifiers (1) Schizoaffective disorder: Qualified Codes: F25.0 - Schizoaffective disorder, bipolar type Olayinka Galvez MD Jan 26, 2017 10:15
[2017-01-26] MEDS: ACETAMINOPHEN 325 MG TAB PO PRN (15:09)
[2017-01-26 17:33] VITALS: BP 136/70; PULSE 71; RESP 19; TEMP 97.9; O2SAT 99
[2017-01-26] MEDS: traZODone HCL 50 MG TAB PO SCH (20:51)
[2017-01-26] MEDS: OLANZapine ODT 10 MG TAB PO SCH (20:54)
[2017-01-26] MEDS: ALUMINUM/MAGNESIUM/SIMETH 30 ML CUP PO PRN (21:53)
[2017-01-27] MEDS: BENZOCAINE 7.5% ORAL GEL 9.4 GM TUBE OROPHARYNG PRN (03:31)
[2017-01-27] MEDS: ACETAMINOPHEN 325 MG TAB PO PRN ×2 (03:31→18:40)
[2017-01-27 06:14] VITALS: BP 113/76; PULSE 53; RESP 16; TEMP 97.4; O2SAT 99
[2017-01-27] MEDS: BENZTROPINE MESYLATE 1 MG TAB PO SCH ×2 (08:01→21:18)
[2017-01-27] MEDS: HALOPERIDOL 10 MG TAB PO SCH ×3 (08:03→21:00)
[2017-01-27] MEDS: carBAMazepine 200 MG TAB PO SCH ×2 (08:03→21:17)
--- NOTE | 2017-01-27 09:25 | HHI.PYPN ---
Subjective Remarks Patient seen and examined with counselor and a nurse. Chart reviewed. Case discussed with nursing staff. Patient's mother unfortunately did not come to visit patient last night. Patient tells me that she plans to come this evening. He is hopeful that she will see that he has been compliant with medications and that his behavior is improved and therefore accept him home. Denies any SI, HI or AVH. Calm and cooperative with evaluation, and thought process is logical and linear. Recognizes that he needs to take psychotropic medications. He insists that this is not just pseudo-insight. No side effects from medications. No physical complaints. Review of Systems Except as stated in HPI: all other systems reviewed are Neg Objective Alert: Yes [place]: Person, Place, Date Mood: Calm Affect: Appropriate Memory Intact: Comment (Intact on clinical exam) Hallucinations: Other (No AVH) Delusions: No Delusion Type: Other (No delusions) Suicidal: Ideation (Denies SI) Homicidal: Ideation (Denies HI) Insight/Judgment Improving Remarks No motor abnormalities noted Labs Labs reviewed. No new labs. Vitals/IOs Vital Signs Date Time Temp Pulse Resp B/P (MAP) Pulse Ox O2 Delivery O2 Flow Rate FiO2 01/27/17 06:14 97.4 53 16 113/76 (88) 99 Assessment & Plan Problem List: (1) Schizoaffective disorder ICD Codes: F25.9 - Schizoaffective disorder, unspecified Status: Acute (2) Cannabis abuse ICD Codes: F12.10 - Cannabis abuse, uncomplicated Status: Chronic Assessment & Plan Continue current psychotropics as ordered. Continue to monitor on the inpatient unit. Continue other medications and care as ordered. Justification for Cont. Inpt. Discharge planning Discharge Planning Hopefully patient's mother will visit the patient tonight, and hopefully she will be willing to accept him home. Given behavior on unit, patient likely does not meet criteria for extended involuntary psychiatric hospitalization, and so we will likely be forced to discharge him soon if he is not willing to remain voluntarily. Request HC Surrog/Guard Advoc?: Yes Problem Qualifiers (1) Schizoaffective disorder: Qualified Codes: F25.0 - Schizoaffective disorder, bipolar type Olayinka Galvez MD Jan 27, 2017 09:25
[2017-01-27 18:25] VITALS: BP 119/72; PULSE 65; RESP 18; TEMP 98.3; O2SAT 99
[2017-01-27] MEDS: traZODone HCL 50 MG TAB PO SCH (21:00)
[2017-01-27] MEDS: OLANZapine ODT 10 MG TAB PO SCH (21:17)
[2017-01-28 05:30] VITALS: BP 115/75; PULSE 96; RESP 16; TEMP 97.9; O2SAT 99
[2017-01-28] MEDS: ACETAMINOPHEN 325 MG TAB PO PRN ×4 (05:47→16:17)
[2017-01-28] MEDS: BENZTROPINE MESYLATE 1 MG TAB PO SCH ×2 (07:55→20:30)
[2017-01-28] MEDS: carBAMazepine 200 MG TAB PO SCH ×2 (07:55→20:30)
[2017-01-28] MEDS: HALOPERIDOL 10 MG TAB PO SCH ×3 (07:57→20:31)
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
[2017-01-28 18:25] VITALS: BP 142/84; PULSE 71; RESP 18; TEMP 98.5; O2SAT 100
[2017-01-28] MEDS: OLANZapine ODT 10 MG TAB PO SCH (20:30)
[2017-01-28] MEDS: traZODone HCL 50 MG TAB PO SCH (20:30)
[2017-01-29 06:24] VITALS: BP 116/68; PULSE 68; RESP 17; TEMP 98.4; O2SAT 98
[2017-01-29] MEDS: BENZTROPINE MESYLATE 1 MG TAB PO SCH ×2 (09:05→21:11)
[2017-01-29] MEDS: carBAMazepine 200 MG TAB PO SCH ×2 (09:05→21:10)
[2017-01-29] MEDS: ACETAMINOPHEN 325 MG TAB PO PRN ×3 (09:06→21:15)
[2017-01-29] MEDS: HALOPERIDOL 10 MG TAB PO SCH ×3 (09:30→21:15)
--- NOTE | 2017-01-29 16:33 | HHI.PYPN ---
Subjective Remarks Patient was seen and case discussed with nursing. Patient continues to have good behavior. No physical or verbal outbursts. Had a productive visit with his mother today. He is hoping to go home on Tuesday. Mood is not elevated, thought process is logical and coherent Objective Alert: Yes [place]: Person, Place, Date Mood: Calm Affect: Appropriate, Euthymic Memory Intact: Comment (intact) Hallucinations: Other (no hallucinations) Delusions: No Delusion Type: Other (no delusional material) Suicidal: Ideation (no SI) Homicidal: Ideation (no HI) Insight/Judgment Improving Vitals/IOs Vital Signs Date Time Temp Pulse Resp B/P (MAP) Pulse Ox O2 Delivery O2 Flow Rate FiO2 01/29/17 10:25 16 01/29/17 06:24 98.4 68 116/68 (84) 98 Assessment & Plan Problem List: (1) Schizoaffective disorder ICD Codes: F25.9 - Schizoaffective disorder, unspecified Status: Acute (2) Cannabis abuse ICD Codes: F12.10 - Cannabis abuse, uncomplicated Status: Chronic Assessment & Plan Continue current treatment plan Justification for Cont. Inpt. Patient would decompensate in a less restrictive setting Request HC Surrog/Guard Advoc?: Yes Problem Qualifiers (1) Schizoaffective disorder: Qualified Codes: F25.0 - Schizoaffective disorder, bipolar type Lc Stone DO Jan 29, 2017 16:33
[2017-01-29 18:00] VITALS: BP 135/80; PULSE 70; RESP 18; TEMP 97.5; O2SAT 97
[2017-01-29] MEDS: traZODone HCL 50 MG TAB PO SCH (21:10)
[2017-01-29] MEDS: diphenhydrAMINE HCL 50 MG CAP PO PRN (21:11)
[2017-01-29] MEDS: OLANZapine ODT 10 MG TAB PO SCH (21:11)
[2017-01-30] MEDS: ACETAMINOPHEN 325 MG TAB PO PRN ×4 (02:40→20:05)
[2017-01-30 05:36] VITALS: BP 126/60; PULSE 68; RESP 16; TEMP 97.9; O2SAT 98
[2017-01-30] MEDS: HALOPERIDOL 10 MG TAB PO SCH ×3 (09:13→20:07)
[2017-01-30] MEDS: BENZTROPINE MESYLATE 1 MG TAB PO SCH ×2 (09:13→20:06)
[2017-01-30] MEDS: carBAMazepine 200 MG TAB PO SCH ×2 (09:13→20:06)
[2017-01-30] MEDS: BENZOCAINE 7.5% ORAL GEL 9.4 GM TUBE OROPHARYNG PRN (11:10)
--- NOTE | 2017-01-30 16:43 | HHI.PYPN ---
Subjective Remarks Patient was seen and case discussed with nursing. Patient continues to improve. He is bright and cheerful during the interview. He is no longer entitled, hyperverbal or pressured. Remains mildly elevated. Playing basketball and social with others. Continues to visit with his mom daily. Hoping to be discharged next week. Compliant with medications and behaving well on the unit. Objective Alert: Yes [place]: Person, Place, Date Mood: Other (mildly elevated) Affect: Appropriate, Euthymic Memory Intact: Comment (intact) Hallucinations: Other (no hallucinations) Delusions: No Delusion Type: Other (no delusional material) Suicidal: Ideation (no SI) Homicidal: Ideation (no HI) Insight/Judgment Improving Vitals/IOs Vital Signs Date Time Temp Pulse Resp B/P (MAP) Pulse Ox O2 Delivery O2 Flow Rate FiO2 01/30/17 10:15 16 01/30/17 05:36 97.9 68 126/60 (82) 98 Assessment & Plan Problem List: (1) Schizoaffective disorder ICD Codes: F25.9 - Schizoaffective disorder, unspecified Status: Acute (2) Cannabis abuse ICD Codes: F12.10 - Cannabis abuse, uncomplicated Status: Chronic Assessment & Plan Continue current treatment plan Justification for Cont. Inpt. Patient would decompensate in a less restrictive setting Request HC Surrog/Guard Advoc?: Yes Problem Qualifiers (1) Schizoaffective disorder: Qualified Codes: F25.0 - Schizoaffective disorder, bipolar type Lc Stone DO Jan 30, 2017 16:43
[2017-01-30] MEDS: traZODone HCL 50 MG TAB PO SCH (20:05)
[2017-01-30] MEDS: OLANZapine ODT 10 MG TAB PO SCH (20:06)
[2017-01-31 05:30] VITALS: BP 121/57; PULSE 69; RESP 16; TEMP 98.4; O2SAT 99
[2017-01-31] MEDS: ACETAMINOPHEN 325 MG TAB PO PRN (08:37)
[2017-01-31] MEDS: BENZTROPINE MESYLATE 1 MG TAB PO SCH (08:37)
[2017-01-31] MEDS: carBAMazepine 200 MG TAB PO SCH (08:39)
[2017-01-31] MEDS: HALOPERIDOL 10 MG TAB PO SCH ×2 (09:00→12:26)
[2017-01-31] MEDS ORDERED: HALO10TA PO (12:19)
[2017-01-31] MEDS ORDERED: HALO100P IM (12:19)
[2017-01-31] MEDS ORDERED: TRAZ50TA12 PO (12:19)
[2017-01-31] MEDS ORDERED: ZYPR10TA PO (12:19)
[2017-01-31] MEDS ORDERED: Benztropine PO (12:19)
[2017-01-31] MEDS ORDERED: CARB200T PO (12:19)
--- NOTE | 2017-01-31 12:19 | HHI.DS ---
Psychiatry Discharge Summary Inpatient Psychiatric care?: Yes Advance Directive: No Reason Not Provided: refused Mental Health AdvanceDirective: No Health Care Proxy: No Admission Admission Date Jan 06, 2017 at 09:06 Admission Diagnosis: (1) Schizophrenia ICD Code: F20.9 - Schizophrenia, unspecified (2) Cannabis abuse ICD Code: F12.10 - Cannabis abuse, uncomplicated Brief History Mr. Sainz is a 31-year-old male with a history of psychotic disorder who presents under an ex parte order initiated by his mother. I have reviewed disorder in detail, and patient's mother alleges that the patient has been angry and aggressive and has made threats to kill everybody. Ex parte indicates that the patient stated that he would kill everybody if he didn't get his $100 million. Patient was agitated in the ED and required medication with Geodon. Reviewing the electronic medical record, I note that the patient has been brought in previously under ex parte orders, and he was admitted briefly under my care in February of last year, although at that time it was less clear that he was experiencing active psychotic illness. Patient seen and examined with nurse. Chart reviewed. Case discussed with nursing staff. Earlier in the day, the patient was growing quite agitated and threatening. I ordered the patient medicated with Haldol, Ativan and Benadryl ETO. At the time of my evaluation this afternoon, the patient is considerably calmer and more cooperative. Eye contact is poor. He denies issuing threats as alleged in the ex parte order but does firmly believe that his family has taken away his $100 million inheritance. He says that he received this inheritance from "the great man of God." He also articulates a belief that his mother might not really be a family member. Some more generalized paranoia present. He denies audiovisual hallucinations but appears internally preoccupied. No depressive or hypomanic/manic symptoms elicited. He denies suicidal or homicidal ideation but seems unreliable to contract for safety. Sleep is reportedly poor. The remainder of the psychiatric ROS is negative. Tobacco Use In Past 30 Days: Cigarettes But Not Daily Alcohol Use: Monthly or Less Hospital Course Patient was admitted to a locked, inpatient psychiatric unit. A general medical consultation was obtained. Appropriate precautions were in place throughout patient's hospital stay. Patient seen and examined on the unit by psychiatry and also visited by counselor. Psychotropic medications were adjusted. Patient had improvement in presenting psychiatric symptomatology during the course of his hospital stay. Patient's behavior improved with the benefit of psychopharmacologic treatment. He was able to be transferred from the higher acuity unit to the lower acuity unit without incident and tolerated the milieu of the lower acuity unit well. Patient's mother visited with the patient before the weekend, and counselor has reached out to the patient's mother. Counselor informs me that the patient's mother is comfortable accepting the patient home today. On the day of discharge: Patient seen and examined with nurse and counselor. Chart reviewed. Case discussed with nursing staff who reports that the patient has been no behavioral problem overnight. On my examination today, patient is in good spirits. He is requesting discharge from the inpatient psychiatric unit today. He denies any suicidal or homicidal ideation, intent or plan on direct questioning and contracts for safety. He in particular denies any urge to violence against his mother. Mood is stable, and I can elicit no depressive or hypomanic/manic symptoms at this time. He denies any audiovisual hallucinations, and I can elicit no delusional material. In particular, when I ask him about the $100 million he believed was being kept from him at admission, he no longer believes that he is owed this money. He says his grandfather, who had reportedly told him about the money, was perhaps mistaken, or "maybe we lost it in the stock market or something." In any event, he is not concerned about this issue now. Denies side effects from medications. We reinforced the importance of medication adherence on an outpatient basis. No physical complaints. Weighing the acute, chronic, and protective factors and based on the available evidence, I rubber and pounder to a reasonable degree of medical certainty that the patient is at low imminent risk of harm to self or others from a mental illness as defined under the Ramírez act and his level of function is adequate for outpatient care. The patient has maximized benefit from this inpatient psychiatric hospital stay and will be discharged home today with psychiatric follow-up as arranged by counselor. Patient is also to follow-up with primary care. I counseled the patient to abstain from use of drugs or alcohol. I counseled the patient regarding warning signs for need to return to the psychiatric emergency room as part of a general safety plan. Results Blood Pressure 121 / 57 Vital Signs Date Time Temp Pulse Resp B/P (MAP) Pulse Ox O2 Delivery O2 Flow Rate FiO2 01/31/17 05:30 98.4 69 16 121/57 (78) 99 Laboratory Results Test 01/07/17 09:25 Cholesterol Level 205 MG/DL (120-200) HDL Cholesterol 47.1 MG/DL (40.0-60.0) Hemoglobin A1c 5.1 % (4.3-6.0) LDL Cholesterol 133 MG/DL (0-99) Triglycerides Level 126 MG/DL (42-150) Summary of Procedures None done Imaging None done Pending results at discharge: No Medications # of Antipsychotic meds at D/C: 2 Appropriate >1 Antipsych meds?: 4 Approp Antipsych med options 1 - Minimum of three failed multiple trials of monotherapy. 2 - Documented plan to taper to monotherapy due to previous use of multiple meds OR cross-taper in progress at D/C. 3 - Documentation of augmentation of Clozapine. 4 - Justification other than those listed in allowable values 1-3, document here : Required more than one antipsychotic for stabilization Discharge Discharge Date: Jan 31, 2017 Discharge Diagnosis: (1) Schizoaffective disorder Diagnosis: Principal (stabilized) ICD Code: F25.9 - Schizoaffective disorder, unspecified Status: Acute (2) Cannabis abuse Diagnosis: Secondary (counseled quit) ICD Code: F12.10 - Cannabis abuse, uncomplicated Status: Chronic Mental Status Exam at Disch Patient is casually dressed. Patient is well groomed. Patient is awake and alert and oriented 3. No evidence of delirium. No motor abnormalities appreciated. Speech is within normal limits for rate, tone, volume. Language and fund of knowledge average. Focus and concentration intact. Memory grossly intact on clinical exam. Mood is good. Affect is full and reactive. Thought process linear. No delusions elicited. Denies audiovisual hallucinations and does not appear internally stimulated. Denies suicidal or homicidal ideation, intent, or plan and contracts for safety. Insight and judgment seem improved versus admission. Pt Condition on Discharge: Stable Discharge Disposition: Discharge Home Discharge Instructions Diet Instructions: As Tolerated, No Restrictions Activities you can perform: Weight Bearing as Baldomero Scheduled Appointment: as per counselor's notes New Medications: Haloperidol Decanoate Inj (Haldol Decanoate Inj) 100 Mg/Ml Inj 300 MG IM Q28D for Schizophrenia, #3 VIAL 0 Refills This dose of Haldol Dec is due on/before 02/13/2017. Olanzapine (Zyprexa) 10 Mg Tab 10 MG PO HS for Mental Health for 15 Days, TAB 1 Refill Carbamazepine (Carbamazepine) 200 Mg Tab 200 MG PO Q12HR for Mental Health for 15 Days, TAB 1 Refill Haloperidol (Haloperidol) 10 Mg Tab 10 MG PO DAILY@0900,1300,2100 for Mental Health for 15 Days, TAB 1 Refill Continue taking oral Haldol until directed otherwise by your outpatient provider. Be sure to get your next Haldol Decanoate injection. Trazodone (Trazodone) 50 Mg Tab 50 MG PO HS for Mental Health for 15 Days, TAB 1 Refill [Benztropine] () 1 MG TAB 0.5 MG PO Q12HR for Side effect management Discharge Time > 30 minutes Discharge/Advance Care Plan Health Problems: (1) Schizoaffective disorder (2) Cannabis abuse Goals to promote your health * To prevent worsening of your condition and complications * To maintain your health at the optimal level Directions to meet your goals Take your medications as prescribed Follow your dietary instruction Follow activity as directed Keep your appointments as scheduled Take your immunizations and boosters as scheduled If your symptoms worsen call your PCP, if no PCP go to Urgent Care Center or Emergency Room For 06/12 questions related to your inpatient stay or results of tests pending at discharge, please contact Dr. Olayinka Galvez at Smoking is Dangerous to Your Health. Avoid second hand smoking Problem Qualifiers (1) Schizophrenia: Qualified Codes: F20.0 - Paranoid schizophrenia (2) Schizoaffective disorder: Qualified Codes: F25.0 - Schizoaffective disorder, bipolar type Olayinka Galvez MD Jan 31, 2017 12:19
== END 2017-01-31 13:30 | disposition home or self-care (01) | DRG 885 ==
LOC: NEPE 17:10 → NEDA 01-06 09:06 → H270 01-06 09:27 → H260 01-28 10:46
PROVIDERS: ADMIT Psychiatry & Neurology Psychiatry; ATTEND Psychiatry & Neurology Psychiatry
DX: F20.0 Paranoid schizophrenia (principal); Z78.1 Physical restraint status; F12.10 Cannabis abuse, uncomplicated; K08.89 Other specified disorders of teeth and supporting structures; Z72.0 Tobacco use
CPT/HCPCS: 80053; 80061; 80156; 80307; 81001; 83036; 85025; 93005; 96372; J1200; J1630; J1631; J2060; J3486; Q0163